=== PATIENT | female | born 1940 | race Caucasian/White ===

== ENCOUNTER → 2017-06-05 | Outpatient (CLI) | payer MEDICARE, OTHER ==
[~2017-06-05] MED LIST: ANUSOL-HC30 GM TOP; ASPIRIN81 M2 PO; CETACAINE; COUMADIN 5 MG TA5 M1 PO; COUMADIN7.5 MG PO; DESYREL150 MG PO; ENOXAPARIN100 MG/1 M SUBQ; FLEXERIL; FLEXERIL PO; IBUPROFEN 800800 M1 PO; LOPRESSOR50 PO; MEDROLDOSEPACK PO; MELATONIN3 MG PO; MIRALAX PO; MOM PO; NEURONTIN 400400 M1 PO; NORVASC 5 MG TAB5 MG PO; NYSTATIN 1100000 U/M; OMEPRAZOLE20 M2 PO; PERCOCET 5-3251 EACH; PERCOCET 5-3251 EACH PO; PHENERGAN 25 MG25 M1 PO; PREDNISONE PO; PREVACID15 MG PO; RED YEAST RICE600 MG PO; REQUIP0.5 MG PO; SENNA; SYNTHROID PO; SYNTHROID100 MC1 PO; TAMSULOSIN HCL0.4 M1 PER TUBE; TRAMADOL 50 MG50 MG PO; TYLENOL PM EX-1 EACH PO; VITAMIN B COMPLEX PO; XARELTO15 MG PO; [UNRECOGNIZED DRUG - CODE] PO; [UNRECOGNIZED DRUG - OTHER] SUBQ
--- NOTE | 2017-06-11 08:48 | PAINCON ---
[address] [address] PAIN MANAGEMENT CONSULTATION Name: JANKI ROD Room: [facility] CherAyannaChrisAyanna#: [id number] Admission: 06/05/17 Attend Phys: Claire Yoder MD Discharge: Date of : 39 Report #: [id number] THIS REPORT FOR: //name// CC: Leona Friend DATE OF SERVICE: 06/05/2017 FOLLOWUP COMPLAINT: "Still having some pain in my neck and I am having hot, burning pain down my left arm and my index and middle finger are numb. FOLLOWUP HISTORY: The patient is a 77-year-old female who has been seen in the pain clinic because of pain. She had pain in the occipital area. She underwent an occipital nerve block and noted improvement in that pain. She had been experiencing some shooting pain, which is much less problematic. Now, she is noting pain involving her left arm. She notes that this pain, burning and weakness in her left arm is becoming more problematic. It can last for a number of hours. She denies any new trauma to this area. She has some problems with her left shoulder and thinks that she may have some problem with the shoulder itself. This new pain, which is shooting, burning and has involvement of her index and middle finger is more problematic. She has pain score of 4/10. She continues to have some pain in the lower portion of her back with some radiating down into her leg. She has had sciatica and notes that this pain along the right side can become problematic as well. She finds that the Percocet medication 1-2 tablets 5/325 p.o. q.6-8 hours p.r.n. can be helpful. She denies any new trauma or fall since we saw her last. She continues to take Coumadin because of her history of pulmonary embolus problems. She has not taken her Coumadin over the last couple of days. She does not take her INR at home. She no longer has the device. ALLERGIES: MEPERIDINE, VICODIN. CURRENT MEDICATIONS: Tylenol Extra Strength, Norvasc 5 mg, Flexeril 10 mg, gabapentin 600 mg b.i.d., metoprolol 25 mg b.i.d., omeprazole 20 mg b.i.d., oxycodone 5/325 one to two tablets every 4-6 hours p.r.n., Requip 2 tablets at bedtime, Desyrel 150 mg at bedtime, Coumadin 5 and alternating with 2.5, prednisone 2.5 mg for inflammation, vitamin B complex. PHYSICAL EXAMINATION: HEENT: Head is atraumatic. Eyes are not icteric, no complaint or ear problem. Moist buccal area. No complaints. NECK: Without adenopathy. She does have some soreness [place] [address] PAIN MANAGEMENT CONSULTATION Name: JANKI ROD Room: [facility]#: [id number] Admission: 06/05/17 Attend Phys: Claire Yoder MD Discharge: Date of : 39 Report #: [id number] of the left brachial outflow tract. Complains of pain with radiation down into the left arm with numbness and tingling in the left index and middle finger. Cervical compression with the head tilted to the left exacerbates the pain and cause more pain radiating down into her shoulder and arm. Muscle strength is judged to be 4+ for the left and right upper extremity. Deep tendon reflexes are trace at the biceps tendons bilaterally, trace for ulnar, trace for brachioradialis. Muscle casing flusher is 4/5 bilaterally. HEART: Regular rate, no gallops or rubs. Normal S1, S2. LUNGS: Clear to auscultation. EXTREMITIES: The patient complains of pain radiating down in her right lower buttocks and some in the lower portion of her right leg. The patient has a prosthetic left leg. IMPRESSION: 1. Cervical radiculopathy, status post occipital neuralgia. Continues to have burning pain down in the left C5/C6 nerve areas. 2. Polyarteritis, status post multiple back surgeries, right total knee replacement, prosthetic left leg. 3. History of right shoulder arthroscopy and shoulder replacement with some continued pain in the right. 4. Pain in the knees. History of right foot and multiple foot surgeries, history of intestinal obstruction with colostomy. Not problematic at this juncture, the patient will monitor use of opioids. 5. 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 RECOMMENDATIONS: We discussed treatment options with the patient. A model was used to indicate the area of probable pathology. We reviewed the dermatomal distribution of her pain. It can corresponds to C5-C6 with burning in this dermatomal distribution with numbness and weakness. A period of time was spent reviewing the patient's cervical complaints, shoulder complaints, lumbar complaints and neck complaints. At this juncture, the patient states that she has not taken her Coumadin for a couple of days. She does not have an INR available. We would recommend that she does not take her Coumadin at this juncture. She will follow up in about 4 days, get an INR. If the INR is less than 1.2, we will proceed with a cervical epidural steroid injection. If not, she will follow up in the next couple of days, at which time, hopefully her INR would be of an appropriate level and the cervical epidural steroid injection will be done at that point. We would like to thank you for letting us participate in her care. The patient was seen in the pain clinic and discussed her situation over a 25-minute period of time with greater than 50% of the time allocated to discussing her situation and reasonable treatment plan. <ELECTRONICALLY SIGNED> By: Claire Yoder MD 06/11/17 0848 1152 1704N. Perfecto Yoder MD /[facility]
== END ==
LOC: M.PC 02:18
DX: M54.12 Radiculopathy, cervical region (principal); M30.0 Polyarteritis nodosa; M25.562 Pain in left knee; J81.1 Chronic pulmonary edema; Z98.890 Other specified postprocedural states; Z96.611 Presence of right artificial shoulder joint; Z79.01 Long term (current) use of anticoagulants

== ENCOUNTER → 2017-06-10 | Outpatient (CLI) | payer MEDICARE, OTHER ==
--- NOTE | 2017-06-11 08:48 | PAINCON ---
[address] [address] PAIN MANAGEMENT CONSULTATION Name: MARCELJANKI PERRY Room: [facility].#: [id number] Admission: 06/10/17 Attend Phys: Claire Yoder MD Discharge: Date of : 39 Report #: [id number] THIS REPORT FOR: //name// CC: Leona Friend DATE OF SERVICE: 06/10/2017 FOLLOWUP COMPLAINT: "Pain in my neck with pain down into the left arm, index and middle fingers. FOLLOWUP HISTORY: The patient is a 77-year-old female who has been seen in the pain clinic because of cervical radiculopathy. She has been experiencing pain and discomfort in the left neck area with pain radiating down from her shoulder into her forearm and into her middle and index fingers and thumb finger. They are numb. She has returned today for a cervical epidural steroid injection. She rates her pain as 5/10 at this juncture. She notes that there is some burning in her arm with numbness and tingling sensation in her finger with some spasms. She would like to proceed with a cervical epidural steroid injection at this juncture. ALLERGIES: DEMEROL. CURRENT MEDICATIONS: Coumadin, which has been stopped for 5 days, extra strength Tylenol, Norvasc 5 mg, Flexeril 10 mg q. 6 hours p.r.n., gabapentin 600 mg twice a day, Lopressor 25 mg b.i.d., omeprazole 20 mg b.i.d., Percocet 1-2 tablets q. 4 hours p.r.n. pain 5/325 mg tablets, Requip 0.5 mg 2 tablets at bedtime, trazodone 150 mg at bedtime, Coumadin 5/2.5 mg, the patient has not taken this for the last 5 days, prednisone for inflammation 2.5 mg daily. PHYSICAL EXAMINATION: HEENT: Head atraumatic. Eyes nonicteric. No complaints of ear or nose. Buccal area moist. NECK: Without adenopathy. NEUROLOGIC: Has some soreness to palpation in the left brachial outflow tract. Has pain and numbness down in the left forearm with numbness in the index and middle fingers. Muscle strength is judged to be 4+ in the left arm and 5+ in the right upper extremity. Deep tendon reflexes are trace at the biceps tendons bilaterally, trace for ulnar. Numbness and tingling right index and middle fingers. Muscle structural steel equipment erector 4/5 bilaterally. HEART: Regular rate. Normal S1. No rubs. LUNGS: Clear to auscultation. EXTREMITIES: The patient ambulates with use of a cane. [place] [address] PAIN MANAGEMENT CONSULTATION Name: JANKI RODN Room: [facility]#: [id number] Admission: 06/10/17 Attend Phys: Claire Yoder MD Discharge: Date of : 39 Report #: [id number] IMPRESSION: 1. Cervical radiculopathy with numbness and tingling in the left index and middle fingers. 2. Polyarteritis status post multiple back surgeries, right total knee replacement, prosthetic left leg. 3. History of right shoulder arthroscopy and shoulder replacement with some pain continuing on the right. 4. Pain in the knees. History of right foot and multiple foot surgeries. 5. History of intestinal obstruction and colostomy, not problematic at this juncture. 6. Chronic anticoagulation, status post deep venous thrombosis and bilateral pulmonary edema. The patient is refrained from using her Coumadin with thoughts of undergoing a cervical epidural steroid injection today. RECOMMENDATIONS: We will proceed with a cervical epidural steroid injection. Risks and benefits of the procedure were again reviewed. Possible complications were discussed. The possibility of infection, increased muscle soreness, bleeding, nerve damage, cervical radicular pain exacerbation, and spinal headache were discussed. The patient elects to proceed. PROCEDURE NOTE: The patient was placed in the prone position. Fluoroscopy was used to identify the C7-T1 interspace. This area had been sterilely prepped with Betadine. Then, 0.25% bupivacaine was infiltrated into this area. A fluoroscopy machine using anterior and lateral approaches was utilized. After appropriate alignment, a 17-gauge Tuohy with loss of resistance technique was used to gain access to the C7-T1 interspace. This area had been infiltrated with 2.2% bupivacaine. A total of 120 mg triamcinolone was injected after aspiration was negative. A Band-Aid was then placed in the area of the injection. The patient remained in the pain clinic for an appropriate amount of time. She was taken to the recovery room where she rested without complication. Pain score was rated at 4/10 at the time of discharge. She will follow up in the future as needed. We would like to thank you for letting us participate in her care. We hope she continues to improve. <ELECTRONICALLY SIGNED> By: Claire Yoder MD 06/11/17 0848 1253 2331N. Perfecto Yoder MD /[facility]
== END | disposition home or self-care (01) ==
LOC: M.PC 01:50
DX: M54.12 Radiculopathy, cervical region (principal); M30.0 Polyarteritis nodosa; Z98.890 Other specified postprocedural states; Z93.3 Colostomy status; Z79.01 Long term (current) use of anticoagulants; Z88.8 Allergy status to other drugs, medicaments and biological substances; Z79.899 Other long term (current) drug therapy

== ENCOUNTER → 2017-07-08 | Outpatient (CLI) | payer MEDICARE, OTHER ==
--- NOTE | 2017-07-09 10:11 | PAINCON ---
[address] [address] PAIN MANAGEMENT CONSULTATION Name: JANKI ROD Room: [facility].#: [id number] Admission: 07/08/17 Attend Phys: Claire Yoder MD Discharge: Date of : 39 Report #: [id number] THIS REPORT FOR: //name// CC: Leona Friend DATE OF SERVICE: 07/08/2017 FOLLOWUP COMPLAINT: The pain was pretty good until a few days ago and it has gotten worse. FOLLOWUP HISTORY: The patient is a 77-year-old female who has been seen in the pain clinic because of cervical radiculopathy. She has had pain in the left arm with pain radiating down to the middle and index finger. She underwent a cervical epidural steroid injection at the last visit. She noted significant improvement of 100%. She has noted some increased pain and discomfort in her back as well as in her shoulder area. She has noted that the weather change which has become consistently cold at around windshields of 0 degrees that her pain has worsened. She is also concerned that her sister has shingles in her face, ear and eye in [place]. She is considering going down to see her and lend assistance. She is considering seeing her orthopaedic surgeon. She does have some pain and discomfort in her shoulder. She feels that it continues to tear in the left shoulder. She is experiencing also some pain in her lower back down into her right leg. She feels that her balance may be getting a little worse. She continues to have some numbness and spasms in her hands bilaterally. She finds that Percocet can be somewhat helpful. At this juncture, she has returned to the pain clinic for evaluation and for a cervical epidural steroid injection and possible epidural steroid injection for the lower extremities in the future. ALLERGIES: DEMEROL. CURRENT MEDICATIONS: Include: Coumadin, which she stopped and has an INR today of 1.0, Extra Strength Tylenol, Norvasc 5 mg, Flexeril 10 mg q. 6 hours p.r.n., gabapentin 600 mg b.i.d., Lopressor 25 mg b.i.d., omeprazole 20 mg b.i.d., Percocet 1-2 tablets q.4 hours p.r.n. pain 5/325 Percocet tablets, Requip 0.5 mg 2 tablets at bedtime, trazodone 150 mg at bedtime, Coumadin 5/2.5 mg, the patient has not taken this medication and has had her INR checked. Prednisone for inflammation 2.5 mg daily. PHYSICAL EXAMINATION: HEENT: The patient is normocephalic, atraumatic. Extraocular eye muscles intact. Sclerae nonicteric. Hearing appears normal. No nasal complaints. Buccal area moist. NECK: Without adenopathy. The patient does have some discomfort in the left area which improves when she tilts her head to the left. She notes some [facility] [address] [place] [address] PAIN MANAGEMENT CONSULTATION Name: MARCELJANKI PERRY [id number] Admission: 07/08/17 Attend Phys: Claire Yoder MD Discharge: Date of : 39 Report #: [id number] improvement in the discomfort. NEUROLOGIC: The patient has some soreness to palpation in the left brachial outflow tract. Has some soreness in the left trapezius area and right trapezius area of her neck. Notes pain and discomfort with numbness down into the left forearm involving her middle fingers and index finger. Muscle strength continues to be judged 4+ in the left arm and 5 in the upper extremity on the right. Deep tendon reflexes are trace bilaterally at the biceps and trace at the ulnar. Muscle leasing professional strength is 4/5 bilaterally. HEART: Regular rate, normal S1. No rubs. LUNGS: Clear to auscultation. EXTREMITIES: The patient is able to ambulate with a cane. As you recall, she has a prosthetic left leg. Complains of some pain and discomfort radiating down into the right L5/L4 distribution. IMPRESSION: 1. Cervical radiculopathy with numbness and tingling involving the left index finger, which improved by 100% after last epidural steroid injection. 2. Polyarteritis, status post multiple back surgeries, right total knee replacement and prosthetic left leg. 3. History of right shoulder arthroscopy and shoulder replacement with some pain continuing on the right. The patient has pain and discomfort on the left and is considering seeing her orthopedic surgeon in that regard. 4. Pain in the knees. History of right foot and multiple foot surgeries. 5. History of intestinal obstruction and colonostomy not problematic at this juncture. 6. Chronic anticoagulation. The patient has history of deep venous thrombosis and bilateral pulmonary edema. She has stopped her Coumadin and her INR today is 1. RECOMMENDATIONS: We discussed treatment options with the patient. At this juncture, we will proceed with a cervical epidural steroid injection. Risks and benefits of the procedure were again reviewed. Possible complications were discussed. They include, but are not limited to infection, increased muscle soreness, headache, bleeding, nerve damage and the patient elects to proceed. PROCEDURE NOTE: The patient was placed in the prone position. The fluoroscopy was used to identify the C8-T1 interspace. This area had been sterilely prepped with Betadine. 0.25% bupivacaine was infiltrated into the area. A fluoro machine was then used providing anterior, posterior and lateral visualization. After appropriate alignment, a 17-gauge Tuohy with loss of resistance technique was used to gain access to the epidural space. This was at C7-T1. This area had been infiltrated with 0.25% bupivacaine. Total of 120 mg triamcinolone was injected after negative aspiration. A Band-Aid was placed in the area of the injection. There was no bleeding. The patient was then taken to the recovery room where she remained for an appropriate amount of time. She will follow up in the future as needed. The possibility of [place] [address] PAIN MANAGEMENT CONSULTATION Name: MARCELJANKI Room: [facility]#: [id number] Admission: 07/08/17 Attend Phys: Claire Yoder MD Discharge: Date of : 39 Report #: [id number] the lower back area has been discussed. We would like to thank you for letting us participate in her care. A total of 26 seconds fluoroscopy time was used. <ELECTRONICALLY SIGNED> By: Claire Yoder MD 07/09/17 1011 1402 1604N. Perfecto Yoder MD /[facility]
== END | disposition home or self-care (01) ==
LOC: M.PC 06-24 09:50
DX: M54.12 Radiculopathy, cervical region (principal); M30.0 Polyarteritis nodosa; M25.561 Pain in right knee; M25.562 Pain in left knee; M25.512 Pain in left shoulder; Z96.611 Presence of right artificial shoulder joint; Z96.651 Presence of right artificial knee joint; Z87.19 Personal history of other diseases of the digestive system; Z98.0 Intestinal bypass and anastomosis status; Z79.01 Long term (current) use of anticoagulants; Z86.718 Personal history of other venous thrombosis and embolism; Z88.8 Allergy status to other drugs, medicaments and biological substances; Z79.899 Other long term (current) drug therapy; Z79.891 Long term (current) use of opiate analgesic

== ENCOUNTER → 2017-08-19 | Outpatient (CLI) | payer MEDICARE, OTHER ==
--- NOTE | 2017-08-29 08:28 | PAINCON ---
[address] [address] PAIN MANAGEMENT CONSULTATION Name: JANKI ROD Room: [facility] Marco Antonio#: [id number] Admission: 08/19/17 Attend Phys: Claire Yoder MD Discharge: Date of : 39 Report #: [id number] THIS REPORT FOR: //name// CC: Leona Friend DATE OF SERVICE: 08/19/2017 FOLLOWUP COMPLAINT: Here for another injection. The other one gave me about 90% relief. FOLLOWUP HISTORY: The patient is a 77-year-old female who has been seen in the Pain Clinic because of cervical radiculopathy. She continues to have pain and discomfort down into her left arm with some radiating down into the middle and index finger. She has undergone epidural steroid injections. She has noted significant improvement. She noted above 90% improvement after the last injection. At this juncture, she has noted some return of discomfort and rates it as a 3/10. She has pain in her neck radiating down the left shoulder with pain down into her fingers. As you recall, she has a left shoulder problem. There is a possibility of having laparoscopic surgery in the future. She wanted to get the cervical portion of her pain under control prior to left shoulder surgery by her orthopaedic doctor. She does find that 1-2 Percocet 5/325 have been helpful. She has had no complication from the previous injections nor from her medications that she is using at this point. ALLERGIES: DEMEROL. CURRENT MEDICATIONS: Reviewed and include Coumadin, which she has stopped. It is in a reasonable range of normal. Extra strength Tylenol, Norvasc 5 mg, Flexeril 10 mg q.6 hours p.r.n., gabapentin 600 mg b.i.d., Lopressor 25 mg b.i.d., omeprazole 20 mg b.i.d., Percocet 1 to 2 tablets every 4-6 hours p.r.n. pain - 5/325 mg tablets, Requip 0.5 mg 2 tablets at bedtime, trazodone 150 mg at bedtime, Coumadin 5/2.5 as prescribed. The patient has not taken her medication for greater than 5 days, prednisone for inflammation 2.5 mg daily. PAIN CLINIC ASSESSMENT: 1. 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 2. The patient has had a right shoulder replacement. 3. Height 5 feet 4 inches, weight 225 pounds, BMI is 38.4. 4. Vital signs: Blood pressure 164/97, heart rate 118, room air saturation is 96, respiratory rate is 16, temperature 98.2, pain intensity 3/10 5. Fall risk. The patient has not fallen in the last 3 months. As you recall, she has a prosthetic left leg. Does walk with use of a cane. 6. The patient is on Coumadin, has stopped it to take for this procedure. We will resume it [place] [address] PAIN MANAGEMENT CONSULTATION Name: JANKI ROD Room: [facility]#: [id number] Admission: 08/19/17 Attend Phys: Claire Yoder MD Discharge: Date of : 39 Report #: [id number] 7. History of hypertension. The patient is being treated for hypertension. 8. Opioids greater than 6 weeks. The patient is not on an opioid contract and is not taking medication on a regular basis. 9. Risk assessment tool. 10. Functional assessment tool. 11. Recreational drug use. The patient denies recreational drugs. 12. Tobacco use. The patient denies use of tobacco. 13. Alcoholic use. The patient denies any frequent use of alcoholic beverages. PHYSICAL EXAMINATION: GENERAL: The patient is a well-developed, white female. She appears her stated age. Affect is appropriate. She is alert and oriented x 3. Speech is fluent. HEENT: Normocephalic, atraumatic. Extraocular eye muscles intact. Sclerae nonicteric. Hearing is within normal limits. No nasal complaints. Moist buccal membranes. NECK: Without adenopathy. The patient does have some discomfort in the left area of her neck with pain radiating into the left shoulder down into her arm with numbness and tingling into her fingers involving the middle and index finger. Notes some weakness in this area. Has some soreness in the left trapezius area as well as in the right outflow tract on the right side. Muscle strength is judged to be 4/5 in the left arm and 5/5 in the upper extremities on the right. Deep tendon reflexes are trace bilaterally at the biceps and trace in the ulnar area. Muscle grades 1 thru 6 visiting teacher strength is 4/5 bilaterally. HEART: Regular rate with normal S1. No rubs. LUNGS: Clear to auscultation. EXTREMITIES: The patient ambulates with use of a cane. As you recall, she has a prosthetic left lower extremity. She has some pain radiating down the L4-L5 distribution. IMPRESSION: 1. Cervical radiculopathy with numbness and tingling involving the left index finger, which improved greater than 100% said in the past after a cervical epidural steroid injection. 2. Polyarteritis, status post multiple back surgeries, right total knee replacement and prosthetic left leg. 3. History of right shoulder arthroscopy and shoulder replacement with some pain continued on the right. The patient has pain and discomfort on the left, which is problematic in which she continues to be followed by her orthopedic surgeon with consideration of surgery in the future. 4. Pain in the knees. History of right foot and multiple foot surgeries. 5. History of intestinal obstruction and colonostomy, not problematic at this juncture. 6. Chronic anticoagulation. The patient has a history of deep venous thrombosis and bilateral pulmonary edema. Stopped her Coumadin for the procedure [place] [address] PAIN MANAGEMENT CONSULTATION Name: JANKI ROD [id number] Admission: 08/19/17 Attend Phys: Claire Yoder MD Discharge: Date of : 39 Report #: [id number] RECOMMENDATIONS: Again, we discussed the treatment option with the patient. The patient feels that her cervical radicular pain continues to be problematic. It involves the left arm with numbness and tingling down in her fingers. She has gleaned greater than 90-100% of improvement in her neck and hand after epidural steroid injections. She would like to proceed with an injection today. Risks and benefits of the procedure were again reviewed. Possible complications, which are not limited to infection, increased muscle soreness, headache, bleeding, nerve damage, improvement in pain or exacerbation of pain were discussed. The patient elects to proceed. PROCEDURE NOTE: The patient was placed in the prone position. The fluoroscopy was used to identify the C7/T1 interspace. This area had been sterilely prepped with Betadine and infiltrated with 0.25% bupivacaine. A fluoro machine was then used to provide anterior, posterior and lateral visualization. After appropriate alignment, a 17-gauge Tuohy with loss of resistance technique was used to gain access to the epidural space. There was no CSF, heme or paresthesia. Total of 120 mg triamcinolone was injected. There were no complications. A Band-Aid was then placed at the site of injection. There was no bleeding. The patient was taken to the recovery room where she remained for an appropriate amount of time. She will follow up in the future as needed. We would like to thank you for letting us participate in her care. We hope she continues to improve. <ELECTRONICALLY SIGNED> By: Claire Yoder MD 08/29/17 0828 2110 0336N. Perfecto Yoder MD /[facility]
== END | disposition home or self-care (01) ==
LOC: M.PC 08-14 09:20
DX: M54.12 Radiculopathy, cervical region (principal); G89.29 Other chronic pain; I10 Essential (primary) hypertension; M19.012 Primary osteoarthritis, left shoulder; M30.0 Polyarteritis nodosa; M19.011 Primary osteoarthritis, right shoulder; Z96.611 Presence of right artificial shoulder joint; Z88.8 Allergy status to other drugs, medicaments and biological substances; Z79.01 Long term (current) use of anticoagulants; Z98.890 Other specified postprocedural states; Z98.0 Intestinal bypass and anastomosis status; Z79.891 Long term (current) use of opiate analgesic; Z79.899 Other long term (current) drug therapy

== ENCOUNTER → 2017-09-10 | Outpatient (CLI) | payer MEDICARE, OTHER | LOC: M.WC 13:00 | DX: L97.811 Non-pressure chronic ulcer of other part of right lower leg limited to breakdown of skin (principal); I87.2 Venous insufficiency (chronic) (peripheral); M21.41 Flat foot [pes planus] (acquired), right foot; G60.3 Idiopathic progressive neuropathy; Z86.73 Personal history of transient ischemic attack (TIA), and cerebral infarction without residual deficits; Z90.710 Acquired absence of both cervix and uterus ==

== ENCOUNTER → 2017-09-11 | Outpatient (CLI) | payer MEDICARE, OTHER ==
--- NOTE | 2017-10-01 08:18 | PAINCON ---
[address] [address] PAIN MANAGEMENT CONSULTATION Name: JANKI ROD [facility] [id number] Admission: 09/11/17 Attend Phys: Claire Yoder MD Discharge: Date of : 39 Report #: [id number] THIS REPORT FOR: //name// CC: Leona Friend DATE OF SERVICE: 09/11/2017 FOLLOWUP COMPLAINT: Low back pain with trigger point. FOLLOWUP HISTORY: The patient is a 77-year-old female, who has been followed in the pain clinic because of pain. She suffers from cervical radiculopathy. She has undergone cervical epidural steroid injections. She has noted some improvement in the pain, which has been radiating down into her arm, has less discomfort. Notes some improvement. She gleaned about 90% improvement after the last injection. At this juncture, she is having pain, which is down into the back area. It is the lower portion of her back. She has had some low back pain for years. As you recall, she has a prosthetic left leg. She is having some numbness and tingling down in the back of her leg with some radiating down to the back of the left leg as well. Overall, she feels that the cervical epidural steroid injections have been helpful. She would now like to focus on the lower back. She has noted some problems with her right leg. She indicates that there has been some discharge from her right leg. It has been to the level that it has caused her to change her bed sheets. She continues to have some drainage. States that it does not appear to be infected, but there is still some drainage going on. Her daughter is present and concurs with her history. ALLERGIES: DEMEROL. CURRENT MEDICATIONS: Coumadin. Extra strength Tylenol, Norvasc 5 mg, Flexeril 10 mg every 6 hours p.r.n., gabapentin 600 mg b.i.d., Lopressor 25 mg b.i.d., omeprazole 20 mg b.i.d., Percocet one-two tablets every 4-6 hours p.r.n. pain 5/325 is the strength, Requip 0.5 mg 2 tablets at bedtime, trazodone 150 mg at bedtime, Coumadin 5 mg/2.5 mg as prescribed, the patient has used prednisone for inflammation 2.5 mg daily. PAIN ASSESSMENT: 1. 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 2. The patient has had a right shoulder replacement. 3. Height 5 feet 4 inches, weight 230 pounds, BMI is 40. 4. VITAL SIGNS: Blood pressure 117/94, heart rate 91, respiratory rate 18, room air saturation 96%, and temperature 97.8. 5. Fall risk. The patient has not fallen. She does [place] [address] PAIN MANAGEMENT CONSULTATION Name: JANKI ROD Room: [facility]#: [id number] Admission: 09/11/17 Attend Phys: Claire Yoder MD Discharge: Date of : 39 Report #: [id number] and she does walk with use of a cane. 6. The patient is on a blood thinner, Coumadin. She stops this when she undergoes procedures. 7. History of hypertension. The patient is being treated for hypertension. 8. Opioid greater than 6 weeks. The patient is not on her opioid contract and is not taking opioid medication on a regular basis. 9. Risk assessment tool. 10. Functional assessment tool. 11. Recreational drug use. The patient denies recreational drug use. 12. Tobacco use. The patient denies use of tobacco. 13. Alcohol use. The patient denies frequent use of alcoholic beverages. PHYSICAL EXAMINATION: GENERAL: The patient is a well-developed, well-nourished white female. She appears her stated age. Her affect is appropriate. She is alert and oriented x 3. Speech is fluent. HEENT: Normocephalic, atraumatic. Extraocular eye muscles intact. Sclerae is nonicteric. Hearing is within normal limits. Nasal mucosa are moist. NECK: Without adenopathy. The patient does have less pain and discomfort down into her left arm and shoulder. HEART: Regular rate with normal S1. No rubs or gallops. LUNGS: Clear to auscultation without rales or rhonchi. EXTREMITIES: The patient ambulates with use of a cane. As you recall, she has a prosthetic left extremity. She complains of pain, is radiating down the L4-L5 distribution. IMPRESSION: 1. Lumbar radicular pain with pain in the lower portion of her back and some trigger point pain in the low back as well. 2. History of cervical radiculopathy, improved with the cervical epidural steroid injections. 3. 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 4. History of right shoulder arthropathy and shoulder replacement. 5. Pain in the knees. History of right foot and with multiple surgeries. 6. History of intestinal obstruction and colostomy, not problematic at this juncture. 7. Chronic anticoagulation secondary to deep vein thrombosis and bilateral pulmonary edema. RECOMMENDATIONS: We discussed treatment options with the patient. At this juncture, she is still having a drainage from her leg. We have explained to her that though it does not appear to be infected at this juncture, I think we would be well served to wait until this has defined itself. We have explained the properties of steroids. They can suppress once immune system. This might cause what might be a small infected area to significantly [place] [address] PAIN MANAGEMENT CONSULTATION Name: JANKI RODN Room: [facility]#: [id number] Admission: 09/11/17 Attend Phys: Claire Yoder MD Discharge: Date of : 39 Report #: [id number] more problematic possibly systemic. Once she has this drainage under control, she will then return to the pain clinic, at which time we would then consider options. We would like to thank you for letting us participate in her care. We hope she continues to improve. <ELECTRONICALLY SIGNED> By: Claire Yoder MD 10/01/17 0818 [id number] [id number]. Perfecto Yoder MD /nt
== END ==
LOC: M.PC 01:27
DX: M19.012 Primary osteoarthritis, left shoulder (principal); M19.011 Primary osteoarthritis, right shoulder; F11.20 Opioid dependence, uncomplicated; I10 Essential (primary) hypertension; Z91.81 History of falling

== ENCOUNTER → 2017-09-17 | Outpatient (CLI) | payer MEDICARE, OTHER | LOC: M.WC 03:07 | DX: E11.622 Type 2 diabetes mellitus with other skin ulcer (principal); I87.2 Venous insufficiency (chronic) (peripheral); L97.811 Non-pressure chronic ulcer of other part of right lower leg limited to breakdown of skin; L89.893 Pressure ulcer of other site, stage 3; E11.40 Type 2 diabetes mellitus with diabetic neuropathy, unspecified; M21.41 Flat foot [pes planus] (acquired), right foot; G60.3 Idiopathic progressive neuropathy; Z86.73 Personal history of transient ischemic attack (TIA), and cerebral infarction without residual deficits; Z90.710 Acquired absence of both cervix and uterus ==

== ENCOUNTER → 2017-09-24 | Outpatient (CLI) | payer MEDICARE, OTHER | LOC: M.WC 04:30 | DX: L97.811 Non-pressure chronic ulcer of other part of right lower leg limited to breakdown of skin (principal); I87.2 Venous insufficiency (chronic) (peripheral); L89.893 Pressure ulcer of other site, stage 3; M21.41 Flat foot [pes planus] (acquired), right foot; G60.3 Idiopathic progressive neuropathy; Z86.73 Personal history of transient ischemic attack (TIA), and cerebral infarction without residual deficits; Z90.710 Acquired absence of both cervix and uterus ==

== ENCOUNTER → 2017-09-30 | Outpatient (CLI) | payer MEDICARE, OTHER | LOC: M.RAD 11:06 | DX: M54.16 Radiculopathy, lumbar region (principal); M40.294 Other kyphosis, thoracic region; M47.894 Other spondylosis, thoracic region; M48.04 Spinal stenosis, thoracic region ==

== ENCOUNTER → 2017-10-01 | Outpatient (CLI) | payer MEDICARE, OTHER | LOC: M.WC 02:54 | DX: E11.622 Type 2 diabetes mellitus with other skin ulcer (principal); L97.811 Non-pressure chronic ulcer of other part of right lower leg limited to breakdown of skin; L89.893 Pressure ulcer of other site, stage 3; E11.40 Type 2 diabetes mellitus with diabetic neuropathy, unspecified; I87.2 Venous insufficiency (chronic) (peripheral); E66.9 Obesity, unspecified; Z68.35 Body mass index [BMI] 35.0-35.9, adult; Z86.73 Personal history of transient ischemic attack (TIA), and cerebral infarction without residual deficits; Z90.710 Acquired absence of both cervix and uterus ==

== ENCOUNTER → 2017-10-09 | Outpatient (CLI) | payer MEDICARE, OTHER | LOC: M.MRI 12:45 | DX: M47.894 Other spondylosis, thoracic region (principal); M48.04 Spinal stenosis, thoracic region; M51.16 Intervertebral disc disorders with radiculopathy, lumbar region; M48.061 Spinal stenosis, lumbar region without neurogenic claudication; G89.29 Other chronic pain ==

== ENCOUNTER → 2017-10-15 | Outpatient (CLI) | payer MEDICARE, OTHER | LOC: M.WC 10-08 13:00 | DX: E11.622 Type 2 diabetes mellitus with other skin ulcer (principal); L97.812 Non-pressure chronic ulcer of other part of right lower leg with fat layer exposed; L89.893 Pressure ulcer of other site, stage 3; E11.40 Type 2 diabetes mellitus with diabetic neuropathy, unspecified; I87.2 Venous insufficiency (chronic) (peripheral); Z86.73 Personal history of transient ischemic attack (TIA), and cerebral infarction without residual deficits; Z90.710 Acquired absence of both cervix and uterus ==

== ENCOUNTER → 2017-10-22 | Outpatient (CLI) | payer MEDICARE, OTHER | LOC: M.WC 04:05 | DX: L97.811 Non-pressure chronic ulcer of other part of right lower leg limited to breakdown of skin (principal); I87.2 Venous insufficiency (chronic) (peripheral); M21.41 Flat foot [pes planus] (acquired), right foot; G60.3 Idiopathic progressive neuropathy; Z86.73 Personal history of transient ischemic attack (TIA), and cerebral infarction without residual deficits ==

== ENCOUNTER → 2017-10-29 | Outpatient (CLI) | payer MEDICARE, OTHER | LOC: M.WC 04:16 | DX: L97.811 Non-pressure chronic ulcer of other part of right lower leg limited to breakdown of skin (principal); I87.2 Venous insufficiency (chronic) (peripheral); M21.41 Flat foot [pes planus] (acquired), right foot; G60.3 Idiopathic progressive neuropathy; Z86.73 Personal history of transient ischemic attack (TIA), and cerebral infarction without residual deficits; Z90.710 Acquired absence of both cervix and uterus ==

== ENCOUNTER → 2018-01-20 | Outpatient (CLI) | payer MEDICARE, OTHER ==
--- NOTE | 2018-01-28 16:41 | PAINCON ---
[address] [address] PAIN MANAGEMENT CONSULTATION Name: JANKI ROD Room: [facility].#: [id number] Admission: 01/20/18 Attend Phys: Claire Yoder MD Discharge: Date of : 39 Report #: [id number] THIS REPORT FOR: //name// CC: Leona Friend DATE OF SERVICE: 01/20/2018 FOLLOWUP COMPLAINT: "I have been having pain in my back. I am having pain in my neck and my hands are weak. FOLLOWUP HISTORY: The patient is a 77-year-old female who has been seen in the pain clinic on a number of occasions. She states that she has been having more pain and discomfort. She notes some weakness in her legs. She also has weakness in her hands. She states that when she tries to pull the bed covers down, she has had some difficulty with this because of the weakness involving her hands and in her fingers. She did have some problems with an infection as you may recall in her leg. This was the amputated leg. She states that she was in a rehab hospital for about 2-1/2 months. She has had some work on shoulder surgery. She feels that of all of her pain conditions, the one involving her hands are the most distressing. She has lost her fsr strength. ALLERGIES: DEMEROL, HYDROCODONE FROM VICODIN, ACETAMINOPHEN FROM VICODIN. CURRENT MEDICATIONS: Tylenol Extra Strength; amlodipine 5 mg; Flexeril 10 mg as needed; Neurontin 300 mg, 300 a.m., 300 noon, 600 evening; Lopressor 25 mg b.i.d., omeprazole b.i.d.; Percocet 5/325; Requip 0.5 mg 2 tablets at bedtime; trazodone 150 mg at bedtime; prednisone for inflammation 2.5 mg daily; Chlor tabs 4 mg as directed; vitamin B complex. PAIN CLINIC ASSESSMENT: 1. History of osteoarthritis involving her upper left and right shoulder. 2. Height 5 feet 4 inches, weight 225 pounds, BMI is 39. 3. Vital signs: Blood pressure 128/73, heart rate 88, respiratory rate 16, room air saturation 96%, temperature 98.3. 4. Pain intensity 4/5 out of 10. 5. Falls. The patient has not fallen in the last 3 months. 6. Blood thinner. The patient has stopped Coumadin and is not on a blood thinner at this juncture. 7. Hypertension. The patient is not being treated for hypertension. 8. Risk assessment tool. 9. Functional assessment tool. 10. Recreational drug use. The patient denies use of recreational drugs. 11. Tobacco: The patient denies use of tobacco. 12. Alcohol: The patient [place] [address] PAIN MANAGEMENT CONSULTATION Name: JANKI ROD Room: [facility]#: [id number] Admission: 01/20/18 Attend Phys: Claire Yoder MD Discharge: Date of : 39 Report #: [id number] PHYSICAL EXAMINATION: GENERAL: The patient is a well-developed, well-nourished white female, who appears her stated age. She is alert and oriented x 3. Her affect is appropriate. She is alert and oriented x 3. HEENT: Normocephalic, atraumatic. Extraocular muscles intact. Sclerae nonicteric. Hearing is within normal limits. Mucous membranes moist. NECK: Without adenopathy. The patient does have some complaints of weakness down into her hands with weakness in her fsr strength as well as in her muscles. The patient has some weakness in her arms. She recently had shoulder surgery. HEART: Regular rate. S1, S2, without gallops, or rubs. LUNGS: Clear to auscultation without rhonchi. EXTREMITIES: The patient is using a rolling walker. She states that she can only walk about 6 or 8 feet before she notes some discomfort and must slow down. IMPRESSION: 1. History of increased arm and hand weakness - cervical radicular symptoms. 2. Lumbar radicular pain in the lower portion of her back. 3. History of osteoarthritis involving her shoulders. The patient recently had shoulder surgery. 4. Polyarteritis status post multiple back surgeries. Has had right total knee replacement and prosthetic left hip. 5. History of the right foot with multiple surgeries. 6. History of intestinal obstruction and colostomy not problematic at this juncture. 7. Chronic anticoagulation secondary to history of deep venous thrombosis and bilateral pulmonary edema. RECOMMENDATIONS: We discussed treatment options with the patient. She continues to have pain and discomfort in her arms with weakness. She states that she is unable to pull the bed covers down when she is lying in bed. Has weakness in her hand and in her hand fsr. We will proceed with a cervical epidural steroid injection. Risks and benefits of the procedure were discussed. They include but are not limited to infection, increased muscle soreness, headache, bleeding, worsening of pain, no improvement in pain and the patient elects to proceed. PROCEDURE NOTE: The patient was taken to the procedure area. She was assisted in getting on the examination table with gentle care. After appropriate placement, her cervical area was sterilely prepped with a Betadine solution. Fluoroscopy using anterior, posterior and lateral viewing were implemented in doing the procedure. A midline approach was chosen. At C7-T1, a 17-gauge Tuohy with loss of resistance technique was used to gain access to the epidural space. There was no CSF, heme or paresthesia. A total of 120 mg triamcinolone was injected. The patient tolerated the procedure well. [place] [address] PAIN MANAGEMENT CONSULTATION Name: JANKI ROD Room: [facility]#: [id number] Admission: 01/20/18 Attend Phys: Claire Yoder MD Discharge: Date of : 39 Report #: [id number] Clinic for an appropriate amount of time. She will follow up in the future as needed. We would like to thank you for letting us participate in her care. We hope she continues to improve. About 15 seconds fluoroscopy time was used. <ELECTRONICALLY SIGNED> By: Claire Yoder MD 01/28/18 1641 1546 [id number]. Perfecto Yoder MD /nt
== END | disposition home or self-care (01) ==
LOC: M.PC 04:47
DX: M54.12 Radiculopathy, cervical region (principal); Z79.01 Long term (current) use of anticoagulants; Z98.890 Other specified postprocedural states; M54.16 Radiculopathy, lumbar region; I10 Essential (primary) hypertension

== ENCOUNTER → 2018-03-05 | Outpatient (CLI) | payer MEDICARE, OTHER ==
--- NOTE | 2018-04-15 15:49 | PAINCON ---
[address] [address] PAIN MANAGEMENT CONSULTATION Name: MARCELJANKI SHANKSN Room: [facility].#: [id number] Admission: 03/05/18 Attend Phys: Claire Yoder MD Discharge: Date of : 39 Report #: [id number] THIS REPORT FOR: //name// CC: Leona Friend DATE OF SERVICE: 03/05/2018 PRIMARY CARE PHYSICIAN: Leona Rocha D.O. FOLLOWUP COMPLAINT: Pain in the left neck and shoulder. HISTORY OF PRESENT ILLNESS: The patient is a 77-year-old female who has been followed in the pain clinic because of chronic pain. She suffers from cervical radicular pain as well as lumbar radicular pain. She has returned today with complaint of pain in her low back, neck as well as some pain down into her hands. She has undergone a cervical epidural steroid injection at the last visit. She now has pain, which is most problematic in the posterior portion of her neck and left shoulder area. She feels some achy discomfort in her leg. She feels somewhat unsteady. She has been ambulating with use of her walker. As you recall, she has a left BKA. She has been undergoing iron infusions. She received 100% improvement from the cervical epidural steroid injection on 01/20/2018. Rates pain as a 4-5/10 now involving the posterior portion of her left neck and shoulder. ALLERGIES: DEMEROL, HYDROCODONE FROM VICODIN, ACETAMINOPHEN FROM VICODIN. CURRENT MEDICATIONS: Tylenol Extra Strength, amlodipine 5 mg, Flexeril 10 mg p.r.n., Neurontin 300 mg a.m., 300 mg noon, 600 mg evening, Lopressor 25 mg b.i.d., omeprazole 20 mg b.i.d., Percocet 5/325 mg 1 tablet t.i.d., Requip 0.5 mg 2 tablets at bedtime, trazodone 150 mg at bedtime, prednisone 2.5 mg, Chlor-tabs p.r.n. for allergies 4 mg, and vitamin B complex. PAIN CLINIC ASSESSMENT AND PQRS: 1. History of osteoarthritis. The patient has some pain and discomfort in the left and right upper shoulder. The patient is not being treated for rheumatoid arthritis. 2. Height 5 feet 4 inches, weight 230 pounds, BMI 39. 3. Vital Signs: Blood pressure 175/87, heart rate 87, respiratory rate 16, room air saturation 96%, temperature 98.2, and pain intensity 4-5/10. 4. Fall history: The patient has not fallen in the last 3 months. 5. Blood thinner. The patient has stopped her Coumadin. 6. Hypertension. The patient is not being treated for hypertension. 7. Risk assessment tool, low risk. 8. Functional [place] [address] PAIN MANAGEMENT CONSULTATION Name: MARCELJANKI Room: [facility]#: [id number] Admission: 03/05/18 Attend Phys: Claire Yoder MD Discharge: Date of : 39 Report #: [id number] 9. Recreational drug use. The patient denies use of recreational drugs. 10. Tobacco: The patient denies use of tobacco. 11. Alcohol: The patient denies use of alcoholic beverages. PHYSICAL EXAMINATION: GENERAL: The patient is a well-developed, well-nourished, white female, appears her stated age. She is alert and oriented x 3. Her affect is appropriate. Speech is fluent. HEENT: Normocephalic, atraumatic. Extraocular eye muscles intact. Sclerae nonicteric. Hearing is within normal limits. Mucous membranes are moist. NECK: Without adenopathy. The patient has some pain and discomfort in the left occipital area. Palpation in this area causes reproduction of pain and discomfort the patient has been experiencing. Left trapezius area has a trigger point as well. Palpation in this area does reproduce a component of the patient's discomfort. HEART: Regular rate. S1, S2, without gallops or rubs. LUNGS: Clear to auscultation without rhonchi or rales. EXTREMITIES: The patient is using a rolling walker. States that she can walk a short distance and feels somewhat unsteady on her feet. IMPRESSION: 1. Occipital neuralgia, left side and myofascial pain, left shoulder area. 2. History of arm and hand weakness - improved after cervical epidural steroid injection. 3. Lumbar radicular pain, lower extremity and upper back. 4. History of osteoarthritis involving both shoulders, status post shoulder surgery. 5. 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 6. History of right foot with multiple surgeries. 7. History of intestinal obstruction and colostomy, not problematic at this juncture. 8. Chronic anticoagulation secondary to history of deep venous thrombosis and bilateral pulmonary edema. RECOMMENDATIONS: We discussed treatment options with the patient. At this juncture, she has stopped taking her Coumadin. She has returned to the pain clinic with a desire to undergo a trigger point injection to the left shoulder as well as the left occipital area. Notes that this pain is problematic and rates it as a 4-5/10. She continues to try on oxycodone, gabapentin and ibuprofen helpful. The patient has been off her Xarelto for the last 4 days, anticipating an injection. We have discussed the possible complication of the procedure, which could include infection, increased muscle soreness, worsening of the pain, pneumothorax. The patient elects to proceed. PROCEDURE NOTE: The patient was taken to the procedure area. [place] [address] PAIN MANAGEMENT CONSULTATION Name: JANKI RODN Room: [facility]#: [id number] Admission: 03/05/18 Attend Phys: Claire Yoder MD Discharge: Date of : 39 Report #: [id number] the sitting position. The patient leaned forward and resting her head upon the examination table. Her left shoulder area and occipital area were treated with a chlorhexidine solution. The occipital area was identified. A 25-gauge needle was then advanced in the area of the occipital nerve. Aspiration did not reveal heme. A total of 10 mL of 0.5% bupivacaine and 40 mg triamcinolone was injected. The patient also had left shoulder trigger point identified in the trapezius. A 25-gauge needle was then advanced into the left trapezius area. Trigger point was noted. Aspiration did not reveal heme or air. A total of 10 mL of 0.5% bupivacaine and 40 mg triamcinolone was injected. The patient tolerated the procedure well. There were no complications. She remained in the pain clinic for an appropriate amount of time. She will follow up in the future as needed. She will call us if she has any concerns. We would like to thank you for letting us participate in her care. We hope she continues to improve. <ELECTRONICALLY SIGNED> By: Claire Yoder MD 04/15/18 1549 2019 [id number]. Perfecto Yoder MD /[facility] [place]
== END | disposition home or self-care (01) ==
LOC: M.PC 02-19 10:20
DX: M79.18 Myalgia, other site (principal); M54.81 Occipital neuralgia; M19.012 Primary osteoarthritis, left shoulder; M19.011 Primary osteoarthritis, right shoulder; G89.29 Other chronic pain; I10 Essential (primary) hypertension; Z98.890 Other specified postprocedural states; Z96.651 Presence of right artificial knee joint; Z96.643 Presence of artificial hip joint, bilateral; Z93.3 Colostomy status; Z88.8 Allergy status to other drugs, medicaments and biological substances; Z79.899 Other long term (current) drug therapy

== ENCOUNTER → 2018-04-14 | Outpatient (CLI) | payer MEDICARE, OTHER ==
--- NOTE | 2018-04-15 15:35 | PAINCON ---
[address] [address] PAIN MANAGEMENT CONSULTATION Name: JANKI ROD Room: [facility].#: [id number] Admission: 04/14/18 Attend Phys: Claire Yoder MD Discharge: Date of : 39 Report #: [id number] THIS REPORT FOR: //name// CC: Leona Yoder DATE OF SERVICE: 04/14/2018 CHIEF COMPLAINT: "Pain in the left neck, shoulder, and it improved after the last injection". HISTORY: The patient is a 78-year-old female who has been followed in the pain clinic. As you recall, she has some chronic pain. She has some lumbar radicular problems. She has undergone epidural steroid injection in this area. At this juncture, she is having pain and discomfort, continues to be problematic involving the left side. Has some limited movement in her left shoulder. He is only able to raise it horizontal to the floor. Feels that there is some increased pain. She is unable to raise it over her head. She denies any trauma, but she did note after a certain movement while back that it became more problematic to raise it over her above horizontal with it lateral to her body. Notes that there is some pain in the occipital area on the back side of her neck. Palpation in this area is where a component of the pain is located. Also, has some pain in the left scapular area near the trapezius. She does have a prosthetic left leg. She has undergone a BKA. States that when she walks uses her arms for support. Notes that without use of her walker, she is unable to walk unassisted. Does have a history of spinal stenosis. Notes that when she stands for a prolonged period of time, pain becomes quite problematic. 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 States that she walks down the countertop using her hands for movement. She needs something to hold on to steady her. At this juncture, she would like to proceed with an injection to the left shoulder and occipital area. Feels that this is problematic. Did undergo an injection at the last visit and noted greater than 50% improvement. ALLERGIES: DEMEROL, HYDROCODONE FROM VICODIN, ACETAMINOPHEN FROM VICODIN. CURRENT MEDICATIONS: Tylenol Extra Strength, amlodipine 5 mg, Flexeril 10 mg p.r.n., Neurontin 300 mg a.m. and 300 mg at noon and 600 mg in the evening, Lopressor 25 mg b.i.d., omeprazole 20 mg b.i.d., Percocet 5/325 one p.o. t.i.d., Requip 0.5 mg 2 tablets at bedtime, trazodone 150 mg at bedtime, prednisone 2.5 mg, Chlor-tab p.r.n. for allergies 4 mg, vitamin B complex. PAIN CLINIC ASSESSMENT/PQRS: 1. History of osteoarthritic changes. 2. The patient has some pain and discomfort in her left and right upper shoulder. She has had shoulder surgery. The patient is not being [place] [address] PAIN MANAGEMENT CONSULTATION Name: JANKI RODN Room: [facility]#: [id number] Admission: 04/14/18 Attend Phys: Claire Yoder MD Discharge: Date of : 39 Report #: [id number] 3. Height 5 feet 4 inches, weight 218 pounds, BMI is 39. 4. Vital signs: Blood pressure 146/66, heart rate 95, respiratory rate 18, room air saturation 97.7%. 5. Pain score 5/10. 6. Fall history: The patient has not fallen in the last 3 months. 7. Blood thinner. The patient is not on a blood thinning medication. 8. She has stopped her Coumadin with the intension of undergoing a trigger point injection. 9. Hypertension. The patient is not being treated for hypertension. 10. Risk assessment tool, low risk for opioids. 11. Functional assessment tool. 12. Recreational drug use. The patient denies use of recreational drugs. 13. Tobacco: The patient denies use of tobacco. 14. Alcohol: The patient denies use of alcoholic beverages. PHYSICAL EXAMINATION: GENERAL: The patient is a well-developed, well-nourished white female. Appears her stated age. She is alert and oriented x 3. Her affect is appropriate. Speech is fluent. HEENT: Normocephalic, atraumatic. Extraocular eye muscles intact. Sclerae nonicteric. Mucous membranes are moist. NECK: Without adenopathy. The patient has some pain and discomfort in her left occipital area. The patient also has pain and discomfort in the area of the left scapula near the levator scapulae. Palpation in this area does reproduce a component of her pain and discomfort. HEART: Regular rate. S1, S2. ABDOMEN: Nontender. Bowel sounds present. LUNGS: Without rhonchi or rales. Upper extremity muscle strength is judged to be 4+ for the left as well as the right upper extremity. The patient has limitations of extending her left arm to horizontal. IMPRESSION: 1. Occipital neuralgia and myofascial pain involving the left shoulder. History of arm weakness. The patient has had cervical epidural steroid injection in the past which have been helpful. 2. Lumbar radicular pain, lower extremity and upper back. 3. History of osteoarthritis involving both shoulders, status post shoulder surgery. 4. Polyarteritis, status post multiple back surgeries. 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 5. History of right foot with multiple surgeries. 6. History of intestinal obstruction and colostomy not problematic at this juncture. 7. Chronic anticoagulation secondary to history of deep venous thrombosis [place] [address] PAIN MANAGEMENT CONSULTATION Name: MARCELJANKI PERRY Room: [facility]#: [id number] Admission: 04/14/18 Attend Phys: Claire Yoder MD Discharge: Date of : 39 Report #: [id number] RECOMMENDATIONS: We discussed treatment options with the patient. Risks and benefits of trigger point injections were discussed. Possible complications of the procedure, which could include infection, worsening of pain, no improvement in pain and pneumothorax were discussed. The patient elects to proceed. PROCEDURE NOTE: The patient was placed in the sitting position. Her neck on the left occipital area was sterilely prepped with a chlorhexidine solution and allowed to dry. The area of the scapula with the insertion of the levator scapula was palpated. The patient states that this reproduce a considerable component of her pain. A 25-gauge needle was then advanced into the occipital area. A 40 mg Depo-Medrol was injected. The patient tolerated this injection well. The second trigger point at the left levator scapular insertion was performed. There was no aspiration of air. A total of 8 mL of 0.5% bupivacaine and 40 mg of Depo-Medrol was injected. The patient tolerated the procedure well. There were no complications. She remained in the Pain Clinic for an appropriate amount of time. She will follow up in the future as needed. We would like to thank you for letting us participate in her care. We hope she continues to improve. <ELECTRONICALLY SIGNED> By: Claire Yoder MD 04/15/18 1535 1708 [id number]. Perfecto Yoder MD /nt
== END | disposition home or self-care (01) ==
LOC: M.PC 04-07 08:18
DX: M79.18 Myalgia, other site (principal); G89.29 Other chronic pain; M54.81 Occipital neuralgia; M54.16 Radiculopathy, lumbar region; M19.011 Primary osteoarthritis, right shoulder; M19.012 Primary osteoarthritis, left shoulder; Z98.890 Other specified postprocedural states; Z96.651 Presence of right artificial knee joint; Z96.642 Presence of left artificial hip joint; Z98.0 Intestinal bypass and anastomosis status; Z87.19 Personal history of other diseases of the digestive system; Z79.01 Long term (current) use of anticoagulants; Z86.718 Personal history of other venous thrombosis and embolism; Z88.8 Allergy status to other drugs, medicaments and biological substances; Z79.899 Other long term (current) drug therapy

== ENCOUNTER → 2018-07-16 | Outpatient (CLI) | payer MEDICARE, OTHER ==
--- NOTE | 2018-07-21 09:15 | PAINCON ---
[address] [address] PAIN MANAGEMENT CONSULTATION Name: JANKI ROD Room: [facility] ANGELO KatrinaAyanna#: [id number] Admission: 07/16/18 Attend Phys: Claire Yoder MD Discharge: Date of : 39 Report #: [id number] THIS REPORT FOR: //name// CC: Leona Yoder DATE OF SERVICE: 07/16/2018 CHIEF COMPLAINT: "Pain in the left back of my head and some down in the shoulder area. HISTORY: The patient is a 78-year-old female who has been followed in the pain clinic. As you may recall, she has a number of painful areas. Has pain in the left occipital area. She has undergone injections in this area and gleaned significant benefits from these. Also, has pain and discomfort in the neck area with some pain that radiates down into her hands. She is on a blood thinning medication, Xarelto. She has been off of the medication for about 2-1/2 days. She would like to have her medications of Percocet renewed. She would also like to undergo an injection in the left occipital area. Injection in this area has been helpful in the past. Also, has some chronic pain in the right leg. As you may recall, she has already had a [id number] amputation on the left side. He has been having some left arm pain. Has some difficulty raising her left arm over her head. Denies any new trauma. Has not fallen since we saw her last. She is having more problems walking. She is no longer able to walk without the assistance of her rolling walker, has a history of significant spinal stenosis. Prolonged standing exacerbates this problem. Epidural steroid injections in the past have been helpful in decreasing her pain by greater than 50%. ALLERGIES: DEMEROL, HYDROCODONE, VICODIN, TYLENOL. CURRENT MEDICATIONS: Tylenol Extra Strength, amlodipine 5 mg, Flexeril 10 mg p.r.n., Neurontin 300 mg a.m. and 300 mg at noon and 600 mg in the evening, Lopressor 25 mg b.i.d., omeprazole 20 mg b.i.d., Percocet 5/325 one p.o. t.i.d., Requip 0.5 mg 2 tablets at bedtime, trazodone 150 mg at bedtime, prednisone 2.5 mg, Chloro-Tap p.r.n. for allergies, 4 mg, Vitamin B complex. PAIN CLINIC ASSESSMENT/PQRS: 1. History of osteoarthritic changes in the low back area with spinal stenosis. 2. History of occipital neuralgia, improved with injections in the past. 3. The patient is not being treated for rheumatoid arthritis. 4. Height 5 feet 4, weight 227 pounds, BMI is 39. 5. Vital signs: Blood pressure 124/37, heart rate 84, respiratory rate 16, room air saturation 94%, temperature 97.8. 6. Pain intensity 7-8/10. 7. Fall history: The patient has not fallen in the last 3 months. 8. Blood thinner. The patient is on a blood thinner, [place] [address] PAIN MANAGEMENT CONSULTATION Name: MARCELJANKI PERRY [id number] Admission: 07/16/18 Attend Phys: Claire Yoder MD Discharge: Date of : 39 Report #: [id number] 9. Hypertension. The patient has not been treated for hypertension. 10. Risk assessment tool, low for opioid use. 11. Functional assessment tool. 12. Recreational drug use. The patient denies use of recreational drugs. 13. Tobacco: The patient denies use of tobacco. 14. Alcoholic use. The patient denies use of alcoholic beverages. PHYSICAL EXAMINATION: GENERAL: The patient is well-developed, well-nourished white female. Appears her stated age. She is alert and oriented x 3. Her affect is appropriate. Speech is fluent. HEENT: Normocephalic, atraumatic. Extraocular eye muscles intact. Sclerae nonicteric. The patient has pain and discomfort in the left occipital area. Palpation in this area does reproduce a component of her pain. She has some pain that radiates down into the left scapular area in the left shoulder as well. HEART: Regular rate. S1, S2. ABDOMEN: Nontender. Bowel sounds present. LUNGS: Clear to auscultation without rhonchi or rales. The patient has a prosthetic left lower extremity, has some pain in the right leg. IMPRESSION: 1. Occipital neuralgia and myofascial pain involving the left shoulder. 2. History of cervical radiculopathy has undergone epidural steroid injection in the past with benefit. 3. Lumbar radicular pain, lower extremity and upper back. 4. History of osteoarthritis involving both shoulders, status post shoulder surgery. 5. Polyarteritis, status post multiple back surgeries. 6. The patient's right total knee replacement and prosthetic left hip. 7. History of right foot with multiple surgeries. 8. History of intestinal obstruction and colostomy, not problematic at this juncture. 9. Chronic anticoagulation secondary to history of deep venous thrombosis and bilateral pulmonary edema. RECOMMENDATIONS: We discussed treatment options with the patient. Risks and benefits of an occipital injection were discussed. The patient has been off her Xarelto almost 3 days. At this juncture, we will proceed with an occipital nerve block. Risks and benefits of the procedure were discussed with the patient. They include but are not limited to infection, worsening of pain, no improvement in pain, nerve damage, bleeding. The patient elects to proceed. PROCEDURE NOTE: The patient was taken to the procedure area. She was then placed perpendicular to the bed. The bed was elevated. The patient leaned forward resting her forehead on the side of bed. Her neck [place] [address] PAIN MANAGEMENT CONSULTATION Name: JANKI ROD Room: [facility]#: [id number] Admission: 07/16/18 Attend Phys: Claire Yoder MD Discharge: Date of : 39 Report #: [id number] was sterilely prepped with a chlorhexidine solution and allowed to dry. Palpation of the occipital area did reproduce the patient's discomfort. A 25-gauge needle was then advanced to the occipital area. Aspiration was negative. A total of 6 mL of 0.5% bupivacaine and 40 mg triamcinolone was injected. The patient tolerated the procedure well. There were no complications. She remained in the Pain Clinic for an appropriate amount of time. She will follow up in the future as needed. We would like to thank you for letting us participate in her care. We hope she continues to improve. The patient will stop taking her Xarelto prior to her next visit. At that time, we would then consider a cervical epidural steroid injection. A script for her medications have been written. We would like to thank you for letting us participate in her care. She will continue with the Oxycodone 5 mg 1 p.o. t.i.d. <ELECTRONICALLY SIGNED> By: Claire Yoder MD 07/21/18 0915 [id number]. Perfecto Yoder MD /nt
== END | disposition home or self-care (01) ==
LOC: M.PC 12:50
DX: M54.81 Occipital neuralgia (principal); M79.18 Myalgia, other site; M31.7 Microscopic polyangiitis; I10 Essential (primary) hypertension; Z98.890 Other specified postprocedural states; Z87.39 Personal history of other diseases of the musculoskeletal system and connective tissue; Z96.651 Presence of right artificial knee joint; Z79.01 Long term (current) use of anticoagulants; Z88.8 Allergy status to other drugs, medicaments and biological substances; Z79.899 Other long term (current) drug therapy

== ENCOUNTER → 2018-09-10 | Outpatient (CLI) | payer MEDICARE, OTHER ==
--- NOTE | ~2018-09-10 | PAINCON ---
[address] [address] PAIN MANAGEMENT CONSULTATION Name: JANKI ROD Room: [facility].#: [id number] Admission: 09/10/18 Attend Phys: Claire Yoder MD Discharge: Date of : 39 Report #: [id number] THIS REPORT FOR: //name// CC: Leona Friend DATE OF SERVICE: 09/10/2018 CHIEF COMPLAINT: Pain in the back of the neck, would like to get another injection. HISTORY: The patient is a 78-year-old female who has been followed in the Pain Clinic because of Occipital neuralgia and myofascial pain. She has undergone injections in the past and gleaned benefits from these. She is having some pain in the left side of her neck with some involvement of her jaw and down her shoulders. Also, has pain in her low back area and has had to undergo epidural steroid injections in that area. She feels that her leg is giving out. She was in a assisted for 2 to 3 weeks after a fracture. She has returned today with a desire to undergo another occipital injection. These have been beneficial in the past. Does continue to have a tightness and radiation into her left shoulder, which is the most problematic area. Rates it as a 7-8 today. Does continue to use Percocet 5 mg 1 to 2 t.i.d. Has had some left arm discomfort. ALLERGIES: DEMEROL, HYDROCODONE, VICODIN, TYLENOL. CURRENT MEDICATIONS: Tylenol Extra Strength, amlodipine 5 mg, Flexeril 10 mg p.r.n., Neurontin 300 mg q.a.m., 300 mg at noon, 600 mg evening, Lopressor 25 mg b.i.d., omeprazole 25 mg b.i.d., Percocet 5/325 one p.o. t.i.d., Requip 0.5 mg 2 tablets at bedtime, trazodone 150 mg at bedtime, prednisone 2.5 mg, Chlor-tab p.r.n. for allergies, 4 mg, vitamin B complex. PAIN CLINIC ASSESSMENT/PQRS: 1. History of osteoarthritic changes in the low back area and history of spinal stenosis. 2. The patient is not being treated for rheumatoid arthritis. 3. Occipital neuralgia, improved with injections in the past. 4. Height 5 feet 4 inches, weight 219 pounds, BMI is 37.6. 5 Blood pressure 133/77, heart rate 95, respiratory rate 16, room air saturation 98%, temperature 97.5. 6. Pain intensity 7/10. 7. Fall history: The patient has not fallen in the last 3 months, but does use a walker to ambulate. Does feel somewhat less stable under her feet. The patient is not on a blood thinning medication. 8. Hypertension. The patient is not [place] [address] PAIN MANAGEMENT CONSULTATION Name: JANKI ROD Room: [facility]#: [id number] Admission: 09/10/18 Attend Phys: Claire Yoder MD Discharge: Date of : 39 Report #: [id number] 9. Risk assessment tool. Low for opioid use. 10. Functional assessment tool. 11. Recreational drug use. The patient denies use of recreational drugs. 12. Tobacco. The patient denies use of tobacco. 13. Alcohol: The patient denies use of alcoholic beverages. PHYSICAL EXAMINATION: GENERAL: The patient is a well-developed, well-nourished white female. Appears her stated age. She is alert and oriented x 3. Her affect is appropriate. Speech is fluent. HEENT: Normocephalic, atraumatic. Extraocular eye muscles intact. The patient has pain and discomfort in the left as well as the right occipital area. Palpation in the left and right occipital area reproduce pain and discomfort. Also has pain is radiating down into her left shoulder. Pain in this area is reproduced by pressure in the occipital area as well. HEART: Regular rate. S1, S2. ABDOMEN: Nontender. Bowel sounds present. LUNGS: Clear to auscultation without rhonchi or rales. The patient has prosthetic left lower extremity. Has pain in her right leg. IMPRESSION: 1. Occipital neuralgia and myofascial pain involving left shoulder. 2. History of cervical radiculopathy undergone epidural steroid injections in the past with benefit. 3. Lumbar radicular pain, lower extremity and lower back area. 4. History of osteoarthritis involving both shoulders, status post shoulder surgeries. 5. Polyarteritis, status post multiple back surgeries. 6. 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 7. History of right foot with multiple surgeries. 8. History of intestinal obstruction and colostomy not problematic at this juncture. 9. Chronic anticoagulation secondary to deep venous thrombosis and bilateral pulmonary edema. RECOMMENDATIONS: We discussed treatment options with the patient. At this juncture, we will proceed with a trigger point injection to the left as well as the right areas. Both are causing significant pain. PROCEDURE NOTE: The patient was taken to the procedure area. She was then placed near the table. The table was elevated. The patient did lean forward and resting her forehead upon the table. Her neck was sterilely prepped. A 25-gauge needle was then advanced into the left occipital area. The patient states that this did reproduce her discomfort. Aspiration was negative. A total of 6 mL of 0.5% bupivacaine and 40 mg triamcinolone was injected into the [place] [address] PAIN MANAGEMENT CONSULTATION Name: JANKI ROD Room: [facility]#: [id number] Admission: 09/10/18 Attend Phys: Claire Yoder MD Discharge: Date of : 39 Report #: [id number] The patient will resume the use of her Xarelto. Follow as an outpatient. By: [id number]. Perfecto Yoder MD /[place]
== END | disposition home or self-care (01) ==
LOC: M.PC 04:50
DX: M79.18 Myalgia, other site (principal); M54.81 Occipital neuralgia; M54.16 Radiculopathy, lumbar region; Z96.651 Presence of right artificial knee joint; Z98.890 Other specified postprocedural states; Z98.0 Intestinal bypass and anastomosis status; Z79.01 Long term (current) use of anticoagulants; Z79.899 Other long term (current) drug therapy; Z86.711 Personal history of pulmonary embolism; Z88.8 Allergy status to other drugs, medicaments and biological substances

== ENCOUNTER → 2019-01-07 | Outpatient (CLI) | payer MEDICARE, OTHER ==
--- NOTE | ~2019-01-07 | PAINCON ---
[address] [address] PAIN MANAGEMENT CONSULTATION Name: JANKI ROD Room: [facility] CherAyannaChris.#: [id number] Admission: 01/07/19 Attend Phys: Claire Yoder MD Discharge: Date of : 39 Report #: [id number] THIS REPORT FOR: //name// CC: Leona Friend DATE OF SERVICE: 01/07/2019 CHIEF COMPLAINT: Neck pain, back pain, and knee pain. HISTORY: The patient is a 78-year-old female who has been followed in the Pain Clinic because of chronic pain. She has had some pain in the occipital areas. She has undergone injections to the affected areas, particularly on the left side. She feels that the electrical shooting pain she had been experiencing in the past has subsided. Consider filling electrical shock. It feels like the "hair just is standing on in." She has less pain in her arm. She was started on a prednisone dosing regimen, about 3 days ago. The patient had pain, which was pretty much global. It involved her hands, back, and knees. She has noted improvement in her hand since she has been taking the medication. Does note some problems with swelling in her right leg. She has tried compression garments, but is unable to place them because of the weakness in her hands. She was told that she had a trace of blood in her urine. She is not sure what this means. 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 She is on chronic anticoagulation therapy. She has noted increased and easier bruising of her arms. She wonders whether or not decreasing her Xarelto is possible. She has used [id number] nonsteroidal anti-inflammatory medications. She is having difficulty in buying certain medications, because she had at this point, at "donut hole" in her insurance. She would like to have her medications renewed. ALLERGIES: DEMEROL, HYDROCODONE, VICODIN, TYLENOL. MEDICATIONS: Extra strength Tylenol, amlodipine 5 mg, Flexeril 10 mg p.r.n., Neurontin 300 mg a.m., 300 mg at noon and 600 mg in the evening, Lopressor 25 mg b.i.d., omeprazole 25 mg b.i.d., Percocet 5/325 one p.o. t.i.d., Requip 0.5 mg 2 tablets at bedtime, trazodone 150 mg at bedtime, prednisone approximately 10 mg, newly started, Chlor-tab p.r.n. for allergies, vitamin B complex. PAIN CLINIC ASSESSMENT/PQRS: 1. History of osteoarthritic changes in her low back. The patient does have a history of spinal stenosis. 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 Walks with a prosthesis. 2. History of occipital neuralgia, which has improved. The patient is not being treated for rheumatoid arthritis. 3. Height 5 feet 4 inches, weight 216 pounds, BMI is 37.7. [place] [address] PAIN MANAGEMENT CONSULTATION Name: JANKI RODN [id number] Admission: 01/07/19 Attend Phys: Claire Yoder MD Discharge: Date of : 39 Report #: [id number] 4. Vital Signs: Blood pressure 139/62, heart rate 71, respiratory rate 18, room air saturation 97%, and temperature 98.5. 5. Pain score, 4/10. 6. Fall history: The patient has not fallen in the last 3 months. She is walking with a rolling walker. Does note some instability when she is standing and walking with a cane. 7. Blood thinner. The patient is on a blood thinning medication, Xarelto. Notes increased bruising in her right forearm as well as the left forearm. 8. Hypertension. The patient is not being treated for hypertension. 9. Risk assessment tool, low for opioid use. 10. Functional assessment tool. 11. Recreational drug use. The patient denies use of recreational drugs. 12. Tobacco: The patient denies use of tobacco. 13. Alcohol: The patient denies use of alcoholic beverages. PHYSICAL EXAMINATION: GENERAL: The patient is a well-developed, well-nourished white female. Appears her stated age. She is alert and oriented x 3. Her affect is appropriate. Speech is fluent. HEENT: Normocephalic, atraumatic. Extraocular eye muscles intact. Sclerae nonicteric. Mucous membranes are moist. NECK: Without adenopathy. The patient has some decreased pain in the left and the right occipital areas. These are the areas that have been most problematic in the past. HEART: Regular rate. S1, S2. ABDOMEN: Nontender. Bowel sounds present. LUNGS: Clear to auscultation without rales or rhonchi. EXTREMITIES: The patient is able to move her upper extremities and has a better dog food dough mixer strength now that she has started the steroid dosing. Continued pain in the right leg. Some edema in the left and the right lower extremity. IMPRESSION: 1. History of Occipital neuralgia and myofascial pain improved after injections, trigger points. 2. History of cervical radiculopathy undergone epidural steroid injections in the past. 3. Lumbar radicular pain, lower extremity involving the low back area. 4. History of osteoarthritis involving both shoulders, status post shoulder surgeries. 5. Polyarteritis, status post multiple back surgeries. 6. 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 7. History of right foot and multiple surgeries. 8. History of intestinal obstruction and colostomy not problematic at this problem. 9. Chronic anticoagulation secondary to deep venous thrombosis [place] [address] PAIN MANAGEMENT CONSULTATION Name: MARCELJANKI Room: [facility]#: [id number] Admission: 01/07/19 Attend Phys: Claire Yoder MD Discharge: Date of : 39 Report #: [id number] RECOMMENDATIONS: We discussed treatment options with the patient. At this juncture, we will continue with her medications. She feels that the oxycodone medication is helpful. She uses it episodically. She is having more and more bruising. She is wondering whether or not the nonsteroidal anti-inflammatory medications can be the cause. She is in the "donut hole", so she finds paying for her medications difficult at this juncture. Possibility of Celebrex has come up. The patient is wondering whether or not this medication could be used because it is decreased affect problems with platelets and whether or not she can take this at least episodically with her Xarelto. States that she did have some mild amount of blood in her urine exam. She wonders whether or not this is secondary to use of Xarelto. I asked that she follow up with her physician who is writing for this medication whether or not that is a common occurrence or some other ____ evaluation of the kidney/urinalysis needs to be undertaken in the future. The patient feels that she is doing better now that she has been started on 10 mg prednisone tablets at this juncture. A script for her medications of oxycodone 5 mg 1 p.o. t.i.d. have been written. The patient will follow up with her primary regarding whether or not Celebrex is an option with the Xarelto. We would like to thank you for letting us participate in her care. We hope she continues to improve. By: [id number]. Perfecto Yoder MD /mackenzie
== END ==
LOC: M.PC 05:15
DX: M54.16 Radiculopathy, lumbar region (principal); M54.12 Radiculopathy, cervical region; M19.012 Primary osteoarthritis, left shoulder; M19.011 Primary osteoarthritis, right shoulder; M54.81 Occipital neuralgia; M30.0 Polyarteritis nodosa; I82.409 Acute embolism and thrombosis of unspecified deep veins of unspecified lower extremity; Z96.651 Presence of right artificial knee joint; Z79.01 Long term (current) use of anticoagulants; Z88.8 Allergy status to other drugs, medicaments and biological substances; Z79.899 Other long term (current) drug therapy

== ENCOUNTER → 2019-03-25 | Outpatient (CLI) | payer MEDICARE, OTHER ==
--- NOTE | 2019-04-12 13:25 | PAINCON ---
[address] [address] PAIN MANAGEMENT CONSULTATION Name: JANKI ROD Room: [facility] ANGELO CherRanjan.#: [id number] Admission: 03/25/19 Attend Phys: Claire Yoder MD Discharge: Date of : 39 Report #: [id number] THIS REPORT FOR: //name// CC: Leona Friend DATE OF SERVICE: 03/25/2019 CHIEF COMPLAINT: Here for an injection. I am having pain in my arm, numbness and tingling down in my fingers. HISTORY: The patient is a 78-year-old female who has been seen in the pain clinic because of chronic pain. As you may recall, she has had neck pain. Injections in the left neck area over a period of time have improved the pain and discomfort. She is having less of the facial pain, less pain on the lateral side of her face. Overall, that has improved. Continues to have some back pain. Has some knee pain as well. Her new complaint is that of numbness and tingling down into her arms and into her hands. There is a burning sensation associated with it. Notes that she has some difficulty making fist as well as manipulating her hands when she awakens. She is somewhat stressed. Her older sister who is 5 years older, has had a stroke. This is in her fifth stroke. This has been more damaging than the previous TIAs. The patient feels that she should go see her and plans to go to [place] in the next week or so. At this point, because of her arm pain and hand pain, she feels that an epidural steroid injection would be beneficial and has returned to the pain clinic for that. ALLERGIES: DEMEROL, HYDROCODONE, VICODIN, TYLENOL. CURRENT MEDICATIONS: Extra strength Tylenol, amlodipine 5 mg, Flexeril 10 mg p.r.n., Neurontin 300 mg a.m., 300 mg at noon and 600 mg evening, Lopressor 25 mg b.i.d., omeprazole 25 mg b.i.d., Percocet 5/325 one p.o. t.i.d., Requip 0.5 mg 2 tablets at bedtime, trazodone 150 mg at bedtime, prednisone on occasion, Chlor-Tab p.r.n. for allergies, vitamin B complex. PAIN CLINIC ASSESSMENT/PQRS: 1. The patient does have history of spinal stenosis in the lower back area. Notes some lumbar radicular pain as a result of that. 2. 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 Walks with a prosthetic leg. 3. History of occipital neuralgia, which has improved. The patient is not being treated for rheumatoid arthritis. 4. Height 5 feet 4 inches, weight 214 pounds, BMI is 36.6. 5. Vital Signs: Blood pressure 124/76, heart rate 84, respiratory rate 16, room air saturation is 95, temperature 97.8. 6. Pain score 6/10. [address] [place] [address] PAIN MANAGEMENT CONSULTATION Name: JANKI ROD Room: [facility]#: [id number] Admission: 03/25/19 Attend Phys: Claire Yoder MD Discharge: Date of : 39 Report #: [id number] 7. Fall history: The patient has not fallen since we saw her last, does walk with a cane. 8. History of occipital neuralgia, improved after injections in the past. The patient is not being treated for rheumatoid arthritis. 9. The patient is walking with a cane. She is not using the rolling walker that she was using in the past. 10. Blood thinner. The patient is on Xarelto. She has stopped taking the medication in hopes of undergoing a cervical epidural injection. 11. Hypertension. The patient is not being treated for hypertension. 12. Risk assessment tool, low for opioid use. 13. Functional assessment tool. 14. Recreational drug use. The patient denies use of recreational drugs. 15. Tobacco: The patient denies use of tobacco. 16. Alcohol. The patient denies use of alcoholic beverages. PHYSICAL EXAMINATION: GENERAL: The patient is a well-developed, well-nourished white female. Appears her stated age. She is alert and oriented x 3. Her affect is appropriate. Speech is fluent. HEENT: Normocephalic, atraumatic. Extraocular eye muscles intact. Sclerae nonicteric. Mucous membranes are moist. NECK: Without adenopathy or JVD. The patient has some decreased pain in the right and left occipital areas. Less problematic than they were in the past. HEART: Regular rate. S1, S2. ABDOMEN: Nontender. Bowel sounds present. EXTREMITIES: Upper extremity muscle strength judged to be 4+/5 for the major muscle groups of the upper extremity. The patient has some pain and discomfort with pain that radiates down into her left arm with numbness and burning sensation. Feels that her hands are less functional. Sometimes uses one hand to open and move the other fingers initially. IMPRESSION: 1. History of cervical radiculopathy with exacerbation of cervical symptomatology involving her arms, particularly on the left side and weakness down into her fingers with numbness and burning. 2. Lumbar radicular pain involving the low back area. 3. History of osteoarthritis of both shoulders, status post surgeries. 4. Polyarthritis, status post multiple back surgeries. 5. 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 6. History of right foot with multiple surgeries. 7. History of gastrointestinal obstruction and colonostomy, not problematic at this juncture. 8. Chronic anticoagulation secondary to deep venous thrombosis and bilateral pulmonary edema. RECOMMENDATIONS: We discussed [place] [address] PAIN MANAGEMENT CONSULTATION Name: MARCELJANKI PERRY Room: [facility]#: [id number] Admission: 03/25/19 Attend Phys: Claire Yoder MD Discharge: Date of : 39 Report #: [id number] benefits of a cervical epidural steroid injection were discussed. They include but are not limited to infection, worsening pain, no improvement in pain, bleeding, nerve damage and the patient elects to proceed. PROCEDURE NOTE: The patient was taken to the procedure area. She was then assisted in getting on the examination table. A pillow was placed under her shoulders to improve positioning. Fluoroscopy using the anterior, posterior as well as lateral viewing were implemented. A 25-gauge needle was then used to anesthetize the skin at C7-T1 interspace. A 17-gauge Tuohy with loss of resistance technique was used to gain access to the epidural space. There was no CSF, heme or paresthesia. A total of 120 mg triamcinolone was injected. The patient tolerated the procedure well. There were no complications. A total of 10 seconds fluoroscopy time was used. The patient will follow up in the near future. We would like to thank you for letting us participate in her care. We hope she continues to improve. We hope that things go well with her and her sister who has had the 5 strokes, who she is scheduled to visit in [place] in the near future. <ELECTRONICALLY SIGNED> By: Claire Yoder MD 04/12/19 1325 [id number]. Perfecto Yoder MD /nt
== END | disposition home or self-care (01) ==
LOC: M.PC 01:01
DX: M54.12 Radiculopathy, cervical region (principal); G89.29 Other chronic pain; M54.16 Radiculopathy, lumbar region; M19.90 Unspecified osteoarthritis, unspecified site; Z98.890 Other specified postprocedural states; Z96.651 Presence of right artificial knee joint; Z96.642 Presence of left artificial hip joint; Z98.0 Intestinal bypass and anastomosis status; Z79.01 Long term (current) use of anticoagulants; Z86.718 Personal history of other venous thrombosis and embolism; Z79.899 Other long term (current) drug therapy; Z88.8 Allergy status to other drugs, medicaments and biological substances

== ENCOUNTER → 2019-06-10 | Outpatient (CLI) | payer MEDICARE, OTHER ==
[~2019-06-10] MED LIST changes: +METFORMIN HCL500 M3 PO
--- NOTE | ~2019-06-10 | PAINCON ---
[address] [address] PAIN MANAGEMENT CONSULTATION Name: JANKI ROD Room: [facility].#: [id number] Admission: 06/10/19 Attend Phys: Claire Yoder MD Discharge: Date of : 39 Report #: [id number] THIS REPORT FOR: //name// CC: Leona Friend DATE OF SERVICE: 06/10/2019 PRIMARY CARE PHYSICIAN: Leona Rocha DO CHIEF COMPLAINT: Pain in the hand helped after the cervical injection. HISTORY: The patient is an 79-year-old female who has been followed in the Pain Clinic. As you may recall, she suffers from cervical radiculopathy as well as lumbar radiculopathy. After the last cervical epidural steroid injection, she has noted some improvement in her hand. She is having less hand pain. She is having some problems with her balance. She is walking using a walker at home. Finds that she is less stable than she had been. She does have some pain in her lower portion of her back. She can pinpoint the area in her left lower back with her thumb. Palpation in this area does reproduce a component of the pain. Overall, she feels that her pain is reasonable. She does not feel that she needs an injection today. She will return to the Pain Clinic should her pain return. She has been told that she has diabetes. She will start taking an oral pill to help with her blood sugars. ALLERGIES: DEMEROL, HYDROCODONE, VICODIN, TYLENOL. CURRENT MEDICATIONS: Extra Strength Tylenol, amlodipine 5 mg, Flexeril 10 mg p.r.n., Neurontin 300 mg, 300 mg afternoon and 600 mg evening, Lopressor 25 mg b.i.d., omeprazole 25 mg, Percocet 5/325 one p.o. t.i.d., Requip 0.5 mg 2 tablets at bedtime, trazodone 150 mg at bedtime, prednisone on occasion, Chlor-Tab p.r.n. for allergies, vitamin B complex, Coumadin 5 mg daily, metformin 500 mg daily. PAIN CLINIC ASSESSMENT AND PQRS: 1. The patient has a history of spinal stenosis in the lower portion of her back. Notes some improvement in the lumbar area. Has had cervical radiculopathy and the neck area has improved after the last injection. The patient is not being treated for rheumatoid arthritis. 2. Height 5 feet 4 inches, weight 214 pounds, BMI is 36.9. 3. Vital Signs: Blood pressure 148/66, heart rate 88, respiratory rate 18, room air saturation is 95%, temperature 98.1. 4. Pain intensity 4/10. 5. Fall history: The patient has not fallen since we saw her last, but does note some instability when walking. She uses a walker. Pain score 4/10. [place] [address] PAIN MANAGEMENT CONSULTATION Name: JANKI ROD Room: [facility]#: [id number] Admission: 06/10/19 Attend Phys: Claire Yoder MD Discharge: Date of : 39 Report #: [id number] 6. Hypertension: The patient is not being treated for hypertension. 7. Opioids: The patient uses medications as directed. 8. Functional assessment tool, low for opioid use. 9. Recreational drug use: The patient denies. 10. Tobacco: The patient denies. 11. Alcohol: The patient denies use of alcoholic beverages. PHYSICAL EXAMINATION: GENERAL: The patient is a well-developed, well-nourished white female. Appears her stated age. She is alert and oriented x 3. Her affect is appropriate. Speech is fluent. HEENT: Normocephalic, atraumatic. Extraocular eye muscles intact. Sclerae nonicteric. Mucous membranes are moist. NECK: Without adenopathy. The patient notes some decreased range of motion in her neck. States that she sometimes sits with her head leaning to the left side. The pain is not associated with this. HEART: Regular rate. S1, S2. ABDOMEN: Nontender. Bowel sounds present. EXTREMITIES: Upper extremity muscle strength judged to be 4+/5 for the major muscle groups in the upper extremity. The patient has some pain and discomfort in her right leg with some numbness and tingling down into her feet. There is a burning sensation. IMPRESSION: 1. History of cervical radiculopathy, improved after the last cervical epidural steroid injection. 2. Lumbar radicular pain involving the low back area. 3. Myofascial pain in the low back area. 4. History of osteoarthritis of both shoulders, status post surgeries. 5. Polyarthritis, status post multiple back surgeries. 6. Right total knee replacement and left leg with left prosthetic hip. 7. History of right foot pain, status post multiple surgeries. 8. History of gastrointestinal obstruction. 9. Chronic anticoagulation secondary to deep venous thrombosis and bilateral pulmonary edema. RECOMMENDATIONS: We discussed treatment options with the patient. At this juncture, we will continue with her current medical regimen. A script for her medications have been rewritten. She will continue with oxycodone 5/325 one p.o. t.i.d. as needed. She is aware that opioid medications can be helpful. They can be less effective as time goes on secondary to development of tolerance. She feels that the medications are helpful. She has had some pain in her low back area. She has had pain in the left posterior area near the buttocks. Palpation in this area can reproduce pain and a trigger point is noted. She feels that her pain overall is reasonably controlled. She might consider a trigger point injection in the future. She [place] [address] PAIN MANAGEMENT CONSULTATION Name: MARCELJANKI Room: [facility]#: [id number] Admission: 06/10/19 Attend Phys: Claire Yoder MD Discharge: Date of : 39 Report #: [id number] any concerns. We would like to thank you for letting us participate in her care. We hope she continues to improve. By: [id number]. Perfecto Yoder MD /nt
== END ==
LOC: M.PC 09:30
DX: M54.16 Radiculopathy, lumbar region (principal); M54.12 Radiculopathy, cervical region; M13.89 Other specified arthritis, multiple sites; G89.29 Other chronic pain; Z79.891 Long term (current) use of opiate analgesic; Z79.899 Other long term (current) drug therapy

== ENCOUNTER → 2019-07-29 | Outpatient (CLI) | payer MEDICARE, OTHER ==
--- NOTE | ~2019-07-29 | PAINCON ---
[address] [address] PAIN MANAGEMENT CONSULTATION Name: MARCELJANKI SHANKSN Room: [facility].#: [id number] Admission: 07/29/19 Attend Phys: Claire Yoder MD Discharge: Date of : 39 Report #: [id number] THIS REPORT FOR: //name// cc: Leona Rocha Ahmad W. DO THIS REPORT FOR: //name// CC: Leona Friend DATE OF SERVICE: 07/29/2019 CHIEF COMPLAINT: Neck pain. HISTORY OF PRESENT ILLNESS: The patient is an 79-year-old female, who has been followed in the Pain Clinic because of chronic low back pain. She has also had some pain in the neck and occipital area. She returns today indicating that pain is most problematic in the neck and radiating down into her hands. She notes that the pain started to worsen about a month ago. She is beginning to have trouble gripping items. She feels at this juncture this is the worst episode of this weakness and discomfort she has experienced. She rates it as a 6-8/10. She has returned to the Pain Clinic with hopes of undergoing an epidural steroid injection. She does have diabetes. ALLERGIES: DEMEROL, HYDROCODONE, VICODIN, TYLENOL. CURRENT MEDICATIONS: Extra Strength Tylenol, amlodipine 5 mg, Flexeril 10 mg, Neurontin 300 mg in the afternoon and 600 mg in the evening, Lopressor 25 mg b.i.d., omeprazole 25 mg, Percocet 5/325 one p.o. t.i.d., Requip 0.5 mg 2 tablets at bedtime, trazodone 150 mg at bedtime, prednisone on occasion, Chlortab p.r.n. allergies, vitamin B complex, Coumadin 5 mg daily, metformin 500 mg daily. PAIN CLINIC ASSESSMENT/PQRS: 1. The patient does have a history of spinal stenosis in the lower portion of her back; also has cervical radicular pain. This involves her neck with pain down into her hands. The patient is not being treated for rheumatoid arthritis. 2. Height 5 feet 4 inches, weight 218 pounds, body mass index is 37.9. 3. Vital signs: Blood pressure 146/73, heart rate 89, respiratory rate 16, room air saturation 97%, and temperature 97.6. 4. Pain intensity: 6-7/10. 5. Fall history: The patient has not fallen in the last 3 months. The patient does have some instability with walking. She is using a walker at this point. 6. Hypertension: The patient is not being treated for hypertension. 7. Opioids: The [place] [address] PAIN MANAGEMENT CONSULTATION Name: JANKI RODN Room: [facility]#: [id number] Admission: 07/29/19 Attend Phys: Claire Yoder MD Discharge: Date of : 39 Report #: [id number] 8. Functional assessment tool: Low for opioid use. 9. Recreational drug use: The patient denies. 10. Tobacco: The patient denies. 11. Alcohol: The patient denies use of alcoholic beverages. PHYSICAL EXAMINATION: GENERAL: The patient is a well-developed, well-nourished white female. She appears her stated age of 79 years' old. She is alert and oriented. Her affect is appropriate. Speech is fluent. HEENT: Normocephalic, atraumatic. Extraocular eye muscles are intact. Sclerae are anicteric. Mucous membranes are moist. NECK: Without adenopathy or JVD. 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 HEART: Regular rate, S1, S2. ABDOMEN: Nontender. LUNGS: Clear to auscultation. EXTREMITIES: Upper extremity muscle strength judged to be 4/5 for the major muscle groups in the upper extremity; lower extremity, right leg with some numbness and tingling into her foot. The patient has a burning sensation. The patient has a prosthetic left leg. IMPRESSION: 1. Cervical radiculopathy. 2. Lumbar radiculopathy involving the low back area. 3. Myofascial pain in the low back area. 4. History of osteoarthritis in both shoulders, status post surgeries. 5. Polyarthritis, status post multiple back surgeries. 6. 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 7. History of right foot pain, status post multiple surgeries. 8. History of gastrointestinal obstruction. 9. Chronic anticoagulation secondary to deep venous thrombosis and bilateral pulmonary edema. RECOMMENDATIONS: We discussed treatment options with the patient. At this juncture, the patient is having more pain involving her arms and down into her hands. She notes some weakness over the last month. She is having trouble gripping and holding onto items. She would like to proceed with a cervical epidural steroid injection. She feels this is the worst as it has been in a while. We discussed the risks and benefits of a cervical epidural steroid injection. They could include but are not limited to infection, worsening the pain, no improvement in pain, nerve damage, and bleeding. The patient elects to proceed. PROCEDURE NOTE: The patient was taken to the [place] [address] PAIN MANAGEMENT CONSULTATION Name: MARCELJANKI PERRY Room: [facility]#: [id number] Admission: 07/29/19 Attend Phys: Claire Yoder MD Discharge: Date of : 39 Report #: [id number] assisted in getting on examination table. A pillow was placed under her shoulders to bolster and improve positioning. Fluoroscopy using anterior and posterior as well as lateral viewing was implemented. A 0.25% bupivacaine was infiltrated at the C7-T1 interspace. A 17-gauge Tuohy with loss of resistance technique was used to gain access to the epidural space. There was no CSF, heme, or paresthesia. A total of 120 mg triamcinolone was injected. The patient tolerated the procedure well. There were no complications. A total of about 12 seconds of fluoroscopy time was used. A script for oxycodone 5 mg 1 p.o. t.i.d. has been rewritten. The patient will call us if she has any concerns. We would like to thank you for letting us participate in her care. We hope she continues to improve. By: [id number]. MD abbie Dalal
== END | disposition home or self-care (01) ==
LOC: M.PC 02:14
DX: M54.12 Radiculopathy, cervical region (principal); G89.29 Other chronic pain; E11.9 Type 2 diabetes mellitus without complications; Z98.890 Other specified postprocedural states; Z79.899 Other long term (current) drug therapy; Z88.8 Allergy status to other drugs, medicaments and biological substances; Z79.891 Long term (current) use of opiate analgesic

== ENCOUNTER → 2019-11-04 | Outpatient (CLI) | payer MEDICARE, OTHER ==
--- NOTE | 2019-11-05 15:54 | PAINCON ---
[address] [address] PAIN MANAGEMENT CONSULTATION Name: MARCELJANKI PERRY Room: [facility].#: [id number] Admission: 11/04/19 Attend Phys: Claire Yoder MD Discharge: Date of : 39 Report #: [id number] THIS REPORT FOR: //name// cc: Leona Rocha Ahmad W. DO ~ THIS REPORT FOR: //name// CC: Leona Yoder DATE OF SERVICE: 11/04/2019 CHIEF COMPLAINT: "Pain in my neck and pain down my left arm and I have pain in my left wrist." HISTORY: The patient is an 79-year-old female who has been followed in the pain clinic. She suffers from pain and discomfort in the low back area. She also has had pain and discomfort in the cervical area. She has noted pain that is radiating from her left neck area and down into the shoulder, forearm and down into her hand. 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 She has undergone cervical epidural steroid injections in the past. She was having pain on the left and right side. The right hand side is improved, but the left hand continues to be problematic and painful. She has returned today. She feels that another injection in the neck area might prove beneficial. She has also noted some increased pain and discomfort in her right wrist. Flexion, extension and rotation of her wrist significantly increases. She has some soreness around the area of her wrists and particularly down in the area of her thumb. She notes increased pain and discomfort with movement of her thumb. She has fallen about 3 times in the last few weeks. She feels that her balance is somewhat problematic. She states that she is using a walker and rolling walker at home. She has returned today for an injection to help with the left hand pain and arm pain. ALLERGIES: DEMEROL, HYDROCODONE, VICODIN, AND TYLENOL. CURRENT MEDICATIONS: Extra Strength Tylenol, amlodipine 5 mg, Flexeril 10 mg, Neurontin 300 mg morning and 600 mg evening, Lopressor 25 mg b.i.d., omeprazole 25 mg, Percocet 5/325 one p.o. t.i.d., Requip 0.5 mg 2 tablets at bedtime, trazodone 150 mg at bedtime, prednisone occasional use chlortab p.r.n. allergies, vitamin B complex, Coumadin 5 mg daily, metformin 500 mg daily. PAIN CLINIC ASSESSMENT AND PQRS: 1. The patient has a history of spinal stenosis in the lower portion of her back. She also has some cervical radicular pain. This involves her neck with pain radiating down into her left arm. At this point, the patient is not [place] [address] PAIN MANAGEMENT CONSULTATION Name: JANKI ROD Room: [facility]#: [id number] Admission: 11/04/19 Attend Phys: Claire Yoder MD Discharge: Date of : 39 Report #: [id number] 2. Height 5 feet 4 inches, weight 218 pounds, BMI is 37. 3. Vital signs: Blood pressure 129/54, heart rate 78, respiratory rate 18, room air saturation 98%, temperature 98 degrees. 4. Pain intensity 6/10. 5. Fall history. The patient has fallen on about 3 occasions. She feels that her balance is somewhat off. 6. Hypertension. The patient is not being treated for hypertension. 7. Opioids. The patient uses opioid medications as directed. 8. Functional assessment tool, low for opioid use. 9. Recreational urine drug use. The patient denies. 10. Tobacco: The patient denies. 11. Alcohol. The patient denies use of alcoholic beverages. PHYSICAL EXAMINATION: GENERAL: The patient is a well-developed, well-nourished white female. Appears her stated age. She is alert and oriented x 3. Her affect is appropriate. Speech is fluent. HEENT: Normocephalic, atraumatic. Extraocular eye muscles intact. Sclerae nonicteric. Mucous membranes are moist. NECK: Without adenopathy. The patient does have some pain and discomfort in the lateral portion in the postauricular area on the left. She has pain and discomfort in the left side with pain radiating down left shoulder, arm and down into the forearm. She perceives some weakness with fence post cutter strength. HEART: Regular rate. ABDOMEN: Nontender. LUNGS: Generally clear to auscultation. EXTREMITIES: Upper extremity muscle strength judged to be 4- on the left and has pain in the right leg with some numbness and tingling down into her foot. She has a prosthetic left leg. IMPRESSION: 1. Cervical radiculopathy. 2. Left arm pain consistent with De Quervain's tenosynovitis. 3. History of lumbar radiculopathy in the low back area. 4. Myofascial pain in the low back area. 5. History of osteoarthritis in both shoulders, status post surgeries. 6. Polyarthritis with multiple back surgeries. 7. 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 8. History of right foot pain, status post multiple surgeries. 9. Gastroesophageal or gastrointestinal obstruction. 10. Chronic anticoagulation secondary to deep venous thrombosis and bilateral pulmonary edema. RECOMMENDATIONS: We discussed treatment options with the patient. The risks and benefits of an epidural steroid injection in the cervical area were again discussed. Possible complications of the procedure, [place] [address] PAIN MANAGEMENT CONSULTATION Name: JANKI ROD Room: [facility]#: [id number] Admission: 11/04/19 Attend Phys: Claire Yoder MD Discharge: Date of : 39 Report #: [id number] not limited to infection, worsening pain, increase muscle soreness, bleeding, nerve damage, spinal headache and the patient elects to proceed. PROCEDURE NOTE: The patient was taken to the procedure area. She was then assisted in getting on examination table. Her back was sterilely prepped with a Betadine solution and allowed to dry. Fluoroscopy using anterior, posterior as well as lateral viewing were implemented. A total of 120 mg triamcinolone was injected at the C7-T1 interspace. There were no complications. The patient will follow up in the near future. In about 2 weeks we will have the patient return. If she still is having pain in the left wrist area we will consider an injection for the De Quervain's tenosynovitis. The patient is somewhat saddened that her son . She has a second son who has stage 4 cancer. She feels like she has a lot of pain at this point. A script for oxycodone 5/325 one p.o. t.i.d., 90 tablets have been provided. We would like to thank you for letting us participate in her care. e hope she continues to improve. <ELECTRONICALLY SIGNED> By: Claire Yoder MD 11/05/19 1554 [id number]. Perfecto Yoder MD /nt
== END | disposition home or self-care (01) ==
LOC: M.PC 03:57
PROVIDERS: ATTEND Anesthesiology Pain Medicine
DX: M54.12 Radiculopathy, cervical region (principal); M79.18 Myalgia, other site; M25.532 Pain in left wrist; M19.90 Unspecified osteoarthritis, unspecified site; Z98.890 Other specified postprocedural states; Z79.899 Other long term (current) drug therapy; Z96.641 Presence of right artificial hip joint; Z79.01 Long term (current) use of anticoagulants; Z88.8 Allergy status to other drugs, medicaments and biological substances

== ENCOUNTER → 2019-11-18 | Outpatient (CLI) | payer MEDICARE, OTHER ==
--- NOTE | 2019-12-09 15:40 | PAINCON ---
[address] [address] PAIN MANAGEMENT CONSULTATION Name: JANKI ROD Emerson Room: [facility]#: [id number] Admission: 11/18/19 Attend Phys: Claire Yoder MD Discharge: Date of : 39 Report #: [id number] THIS REPORT FOR: //name// cc: Leona Rocha Ahmad W. DO THIS REPORT FOR: //name// CC: Leona Friend DATE OF SERVICE: 11/18/2019 CHIEF COMPLAINT: Pain in the left wrist. HISTORY: The patient is an 79-year-old female who has been seen in the Pain Clinic because of chronic back pain as well as cervical pain. She has undergone a cervical epidural steroid injection. She has noticed some improvement. She has been having pain in her left wrist. She is considering an injection in the left wrist area because of the chronic pain. She feels that the last cervical epidural steroid injection was beneficial. Does note that "it is beginning to wear off." Has pain, which is most problematic at this juncture in the left wrist area. She has been using her medication of Percocet. She has stopped the Warfarin medication. She would like to proceed with an injection in the left wrist area to help with her pain. ALLERGIES: DEMEROL, HYDROCODONE, VICODIN, TYLENOL. CURRENT MEDICATIONS: Extra Strength Tylenol, amlodipine 5 mg, Flexeril 10 mg, Neurontin 300 mg in the morning and 600 mg in the evening, Lopressor 25 mg b.i.d., omeprazole 25 mg, Percocet 5/325 one p.o. t.i.d., Requip 0.5 mg 2 tablets at bedtime, trazodone 150 mg at bedtime, Chlortab p.r.n., vitamin B complex, Coumadin 5 mg daily, and metformin 500 mg daily. PAIN CLINIC ASSESSMENT/PQRS: 1. The patient has a history of spinal stenosis in the lower portion of her back. She also has cervical radicular pain. This involves her neck and has pain radiating down to her left arm. 2. Height 5 feet 4 inches, weight 216 pounds, BMI is 37. 3. Vital signs: Blood pressure 143/52, heart rate 71, respiratory rate 14, room air saturation 98%, temperature 98.3. 4. Pain score, 4/10. 5. Fall history: The patient has not fallen since we saw her last, does lose her balance somewhat. 6. Hypertension. The patient is not being treated for hypertension. 7. Opioids. The [place] [address] PAIN MANAGEMENT CONSULTATION Name: MARCELJANKI Emerson Room: [facility]#: [id number] Admission: 11/18/19 Attend Phys: Claire Yoder MD Discharge: Date of : 39 Report #: [id number] 8. Functional assessment tool, low for opioid use. 9. Recreational drug use. The patient denies. 10. Tobacco: The patient denies. 11. Alcohol: The patient denies. PHYSICAL EXAMINATION: GENERAL: The patient is a well-developed, well-nourished white female. Appears her stated age. She is alert and oriented x 3. Her affect is appropriate. Speech is fluent. HEENT: Normocephalic, atraumatic. Extraocular eye muscles intact. Sclerae nonicteric. Mucous membranes are moist. NECK: Without adenopathy or JVD. The patient is wearing a mask. Has pain radiating down into the left arm and forearm. Complains of extreme pain in the area of the forearm. Palpation in this area can reproduce pain and discomfort. HEART: Regular rate. ABDOMEN: Nontender. LUNGS: Clear to auscultation. EXTREMITIES: Upper extremity muscle strength judged to be 4- on the left and some weakness in the right leg with numbness and tingling down into her foot. Does have a prosthetic leg on the left. IMPRESSION: 1. De Quervain's tenosynovitis. 2. History of cervical radiculopathy. 3. History of lumbar radicular pain, low back area. 4. Myofascial pain. 6. History of osteoarthritis involving the shoulders, status post surgeries. 7. Polyarteritis with multiple back surgeries. 8. Left total hip replacement with a prosthetic leg. 9. History of right foot pain, status post multiple surgeries. 10. Gastroesophageal/gastrointestinal obstruction. 11. Chronic anticoagulation secondary to deep venous thrombosis and bilateral pulmonary edema. RECOMMENDATIONS: We discussed treatment options with the patient. At this juncture, the patient is still having pain and discomfort in her left hand. We discussed the risks and benefits of an injection. The reason for pain and discomfort were discussed. A video was used to show the pathophysiology of the condition as well as the anatomy. The patient states that she understands and elects to proceed. PROCEDURE NOTE: The patient was taken to the procedure area. She was then assisted in sitting at the table. Her wrist was placed upon the bed. This area was sterilely prepped. Her left wrist area was sterilely prepped with a chlorhexidine solution and allowed to dry. A chloride solution was sprayed to numb and anesthetize the area. A 25-gauge needle [place] [address] PAIN MANAGEMENT CONSULTATION Name: JANKI ROD Room: [facility]#: [id number] Admission: 11/18/19 Attend Phys: Claire Yoder MD Discharge: Date of : 39 Report #: [id number] area of the left wrist area. After appropriate placement, a total of 40 mg triamcinolone with 3 mL of 0.5% bupivacaine was injected. The patient tolerated the procedure well. She remained in the Pain Clinic for an appropriate amount of time. She will resume use of her Warfarin. We would like to thank you for letting us participate in her care. We hope she continues to improve. <ELECTRONICALLY SIGNED> By: Claire Yoder MD 12/09/19 1540 [id number]. Perfecto Yoder MD /nt
== END | disposition home or self-care (01) ==
LOC: M.PC 09:00
PROVIDERS: ATTEND Anesthesiology Pain Medicine
DX: M65.4 Radial styloid tenosynovitis [de Quervain] (principal); G89.29 Other chronic pain; M25.532 Pain in left wrist; M79.18 Myalgia, other site; I82.409 Acute embolism and thrombosis of unspecified deep veins of unspecified lower extremity; Z98.890 Other specified postprocedural states; Z79.899 Other long term (current) drug therapy; Z79.01 Long term (current) use of anticoagulants; Z96.642 Presence of left artificial hip joint; Z88.8 Allergy status to other drugs, medicaments and biological substances

== ENCOUNTER → 2020-01-20 | Outpatient (CLI) | payer MEDICARE, OTHER ==
--- NOTE | 2020-02-01 15:37 | PAINCON ---
[address] [address] PAIN MANAGEMENT CONSULTATION Name: JANKI ROD Emerson Room: [facility]#: [id number] Admission: 01/20/20 Attend Phys: Claire Yoder MD Discharge: Date of : 39 Report #: [id number] THIS REPORT FOR: //name// cc: Leona Rocha Ahmad W. DO ~ THIS REPORT FOR: //name// CC: Leona Yoder DATE OF SERVICE: 01/20/2020 CHIEF COMPLAINT: Medication renewal. HISTORY: The patient is an 79-year-old female who has been followed in the Pain Clinic. She has a history of cervical pain. She also has some lumbar problems. She states that she has been aching all night long. She does have a history of lymphedema. She has some discomfort with her left wrist. She has not fallen, but does have pain and discomfort in the right leg. Over the past week, it has been more problematic. Prolonged standing has been more of a difficulty. She has her son and his living with her and that has been an added stressor. She has returned today for renewal of her medications. ALLERGIES: DEMEROL, HYDROCODONE, VICODIN, TYLENOL. CURRENT MEDICATIONS: Extra Strength Tylenol, amlodipine 5 mg, Flexeril 10 mg, Neurontin 300 mg in the morning and 600 mg in the evening, Lopressor 25 mg b.i.d., omeprazole 25 mg, Percocet 5/325 one p.o. t.i.d., Requip 0.5 mg 2 tablets at bedtime, trazodone 150 mg at bedtime, chlortab, vitamin B complex, Coumadin 5 mg daily, metformin 500 mg daily. PAIN CLINIC ASSESSMENT AND PQRS: 1. The patient has a history of spinal stenosis in the lower portion of her back. She has also history of cervical radicular pain that involves neck and has pain that radiates down into her left arm. 2. Height 5 feet 4 inches, weight 228 pounds, BMI is 37. 3. Vital signs: Blood pressure 128/67, heart rate 66, respiratory rate 15, room air saturation 95%, temperature 98.1. 4. Pain intensity: 6/10. 5. Fall history: The patient has not fallen in the last month, but notes that her balance is poor. 6. Hypertension: The patient is not being treated for hypertension. 7. Opioids: The patient uses opioid medications. 8. Functional assessment tool: Low for opioid use. 9. Recreational drug use: The patient denies. 10. Tobacco: [place] [address] PAIN MANAGEMENT CONSULTATION Name: MARCELJANKI Room: [facility]#: [id number] Admission: 01/20/20 Attend Phys: Claire Yoder MD Discharge: Date of : 39 Report #: [id number] 11. Alcohol: The patient denies. PHYSICAL EXAMINATION: GENERAL: The patient is a well-developed, well-nourished, white female. Appears her stated age. She is alert and oriented x 3. Her affect is appropriate. Speech is fluent. HEENT: Normocephalic, atraumatic. Extraocular eye muscles intact. Sclerae nonicteric. Mucous membranes are moist. The patient has a facial covering. NECK: Without adenopathy or JVD. The patient has some pain that radiates into her arm and forearm. Complains of some wrist pain and discomfort. HEART: Regular rate. ABDOMEN: Nontender. LUNGS: Clear. MUSCULOSKELETAL: Upper extremity muscle strength is judged to be 4-/5 on the left with some weakness. The patient also complains of some weakness in her right leg with numbness and tingling in her foot. She does have a prosthetic leg on the left. She states that she has to lean on counters and lean forward when she is in the kitchen. Describes a ____ her groin and foot, feels that this discomfort is increasing. Notes worsening of pain after walking a few steps, right foot begins to drag. She has been using a walker at home. She feels that her leg continues to give out. She has noted an additional back spasms and pain. IMPRESSION: 1. De Quervain's tenosynovitis. 2. History of cervical radiculopathy. 3. History of lumbar radicular pain in the low back area. 4. Myofascial pain. 5. History of osteoarthritis involving the shoulders, status post surgeries. 6. Polyarthritis with multiple back surgeries. 7. Left hip replacement with prosthetic leg. 8. History of right foot pain, status post multiple surgeries. 9. Gastroesophageal/gastrointestinal obstruction. 10. Chronic anticoagulation secondary to deep venous thrombosis and bilateral pulmonary edema. RECOMMENDATIONS: We discussed treatment options with the patient. At this juncture, we will continue with her medication. A script for her medications have been rewritten. She will continue with oxycodone 5 mg 1 p.o. t.i.d. A script for 2 months of medication has been written. The patient will call us if she has any new concerns. [address] [place] [address] PAIN MANAGEMENT CONSULTATION Name: JANKI ROD Room: [facility]#: [id number] Admission: 01/20/20 Attend Phys: Claire Yoder MD Discharge: Date of : 39 Report #: [id number] We would like to thank you for letting us participate in her care. We hope she continues to improve. <ELECTRONICALLY SIGNED> By: Claire Yoder MD 02/01/20 1537 [id number]. Perfecto Yoder MD /nt
== END ==
LOC: M.PC 11:00
PROVIDERS: ATTEND Anesthesiology Pain Medicine
DX: Z76.0 Encounter for issue of repeat prescription (principal); M65.4 Radial styloid tenosynovitis [de Quervain]; M79.10 Myalgia, unspecified site; K21.9 Gastro-esophageal reflux disease without esophagitis; J81.0 Acute pulmonary edema; R79.1 Abnormal coagulation profile; Z98.890 Other specified postprocedural states; Z96.642 Presence of left artificial hip joint; Z87.39 Personal history of other diseases of the musculoskeletal system and connective tissue; Z88.8 Allergy status to other drugs, medicaments and biological substances; Z79.899 Other long term (current) drug therapy

== ENCOUNTER → 2020-04-06 | Outpatient (CLI) | payer MEDICARE ==
[~2020-04-06] MED LIST changes: +ELIQUIS2.5 MG PO
--- NOTE | 2020-05-04 14:42 | PAINCON ---
[address] [address] PAIN MANAGEMENT CONSULTATION Name: JANKI ROD Room: [facility]#: [id number] Admission: 04/06/20 Attend Phys: Claire Yoder MD Discharge: Date of : 39 Report #: [id number] THIS REPORT FOR: //name// cc: Cris Hood MD, Pamela MD ~ CC: Claire Hood DATE OF SERVICE: 04/06/2020 CHIEF COMPLAINT: Left shoulder pain. HISTORY: The patient is an 79-year-old female who has been seen in the pain clinic for chronic pain. She returns today indicating that she is having pain in the left shoulder area. She feels that the pain is getting worse as time goes on. She had an evaluation of her shoulder with an MRI per her report. Nothing significant was found. She is going to see an orthopedic surgeon in the next few days. Notes some pain and discomfort in the area of her left ear. Has some pain in her right shoulder, which is hurting as well. Feels that there is occasionally some numbness around the left ear and facial area. Rates her pain today as 5/10. She feels that her medications are helpful. She has been treated with amoxicillin for a possibility of inner ear infection. She did not feel that that significantly changed things. ALLERGIES: DEMEROL, HYDROCODONE, VICODIN, TYLENOL. CURRENT MEDICATIONS: Extra Strength Tylenol, amlodipine 5 mg, Flexeril 10 mg, Neurontin 300 mg morning, 600 mg evening, Lopressor 25 mg b.i.d., omeprazole 25 mg, Percocet 5/325 one p.o. t.i.d., Requip 0.5 mg 2 tablets at bedtime, trazodone 150 mg at bedtime, Chlortab, vitamin B complex, Coumadin 5 mg daily, metformin 500 mg daily. PAIN CLINIC ASSESSMENT AND PQRS: 1. The patient has a history of spinal stenosis in the lower portion of her back. She also has a history of cervical radicular pain that involves her neck and has pain that radiates down to her left arm. 2. Height 5 feet 4 inches, weight 220 pounds, BMI is 40. 3. Vital Signs: Blood pressure 136/68, pulse 82, respiratory rate 16, room air saturation 96%, temperature 98.2. 4. Pain intensity 5/10. 5. Fall history: The patient has not fallen in the last 3 months. 6. The patient does have poor balance. 7. Hypertension. The patient is not being treated for hypertension. 8. Opioids. The patient uses opioid medications. 9. Functional assessment tool, low for opioid use. 10. Recreational drug use: [place] [address] PAIN MANAGEMENT CONSULTATION Name: JANKI ROD Emerson Room: [facility]#: [id number] Admission: 04/06/20 Attend Phys: Claire Yoder MD Discharge: Date of : 39 Report #: [id number] 11. Tobacco: The patient denies. 12. Alcohol. The patient denies use of alcoholic beverages. PHYSICAL EXAMINATION: GENERAL: The patient is a well-developed, well-nourished white female. Appears her stated age. She is alert and oriented x 3. Her affect is appropriate. Speech is fluent. HEENT: Normocephalic, atraumatic. Extraocular eye muscles intact. Sclerae nonicteric. Mucous membranes are moist. The patient is wearing a facial covering. Does complain of some pain in the left neck area. Has some pain in the area of the ear. The patient has pain that radiates down into her forearm and arm. Complains of wrist pain and discomfort. HEART: Regular rate. ABDOMEN: Nontender. LUNGS: Clear to auscultation. MUSCULOSKELETAL: Upper extremity muscle strength judged to be 4-/5 for the major muscle groups in the left with weakness. The patient also has complaints of pain in her right leg with numbness and tingling down into her foot. She does have a prosthetic left leg. States that there is worsening of the pain after walking a few steps. Notes that her whole right foot drags. She has been using a walker at home for stability. Does feel that her leg gives out after some exertion. Has continued to have back spasms. IMPRESSION: 1. De Quervain's tenosynovitis. 2. History of cervical radiculopathy. 3. History of lumbar radicular pain in the low back area. 4. Myofascial pain. 5. History of osteoarthritis involving the shoulders, status post surgeries. 6. Polyarthritis with multiple back surgeries. 7. Left hip replacement with prosthetic leg. 8. History of right foot pain, status post multiple surgeries. 9. Gastroesophageal/gastrointestinal obstruction. 10. Chronic anticoagulation secondary to deep venous thrombosis and bilateral pulmonary edema. RECOMMENDATIONS: We discussed treatment options with the patient. At this juncture, we will continue with her medications. A script for her medications have been rewritten. She will continue with oxycodone 5/325 one p.o. t.i.d. as needed. She will call us if she has any concerns. Hopefully, she will continue to improve. States that she is contemplating seeing an orthopedic surgeon in the near future. She will tell us what his concerns were regarding the possibility of surgery. We would like to thank you for letting us participate in her care. She is not having any problems with her medications and is able to [place] [address] PAIN MANAGEMENT CONSULTATION Name: MARCELJANKI Emerson Room: [facility]#: [id number] Admission: 04/06/20 Attend Phys: Claire Yoder MD Discharge: Date of : 39 Report #: [id number] not having any problems with the medications, which are causing problems with her balance per her report. We would like to thank you for letting us participate in her care. We hope she continues to improve. <ELECTRONICALLY SIGNED> By: Claire Yodre MD 05/04/20 1442 [id number]. Perfecto Yoder MD /nt
== END ==
LOC: M.PC 10:47
PROVIDERS: ATTEND Anesthesiology Pain Medicine
DX: M65.4 Radial styloid tenosynovitis [de Quervain] (principal); K21.9 Gastro-esophageal reflux disease without esophagitis; M19.90 Unspecified osteoarthritis, unspecified site; Z79.01 Long term (current) use of anticoagulants

== ENCOUNTER → 2020-04-13 | Outpatient (CLI) | payer MEDICARE ==
--- NOTE | 2020-05-04 14:42 | PAINCON ---
[address] [address] PAIN MANAGEMENT CONSULTATION Name: MARCELJANKI Norman Room: [facility]#: [id number] Admission: 04/13/20 Attend Phys: Claire Yoder MD Discharge: Date of : 39 Report #: [id number] THIS REPORT FOR: //name// cc: Cris Hood MD, Pamela MD ~ CC: Leona Lacy DATE OF SERVICE: 04/13/2020 CHIEF COMPLAINT: Neck and arm pain. HISTORY: The patient is an 80-year-old female who has been followed in the pain clinic because of pain. She has pain in the cervical area. She also has been experiencing pain in the lumbar area. She returns today with pain, which is most problematic in the neck and arms. She would like to proceed with an epidural steroid injection today. It involves her neck with pain that radiates down into the right side. Also, has some pain in the left side near her ear. She has been told that it might be temporomandibular joint problem. She has rated her pain as a 5/10. She feels that the Percocet medications are helping. Feels that gabapentin is helpful. Weather has changed. Walking and standing have been more problematic. She is having more and more difficulty ambulating. Has some problems with her balance. She has stopped taking the Eliquis with the intention of undergoing a cervical epidural steroid injection today. ALLERGIES: DEMEROL, HYDROCODONE, VICODIN, TYLENOL. CURRENT MEDICATIONS: Extra Strength Tylenol, amlodipine 5 mg, Flexeril 10 mg, Neurontin 300 mg morning and 600 mg evening, Lopressor 25 mg b.i.d., omeprazole 25 mg, Percocet 5/325 one p.o. t.i.d., Requip 2 mg tablets at bedtime, trazodone 150 mg at bedtime, ChlorTab, vitamin B complex, Coumadin 5 mg, and metformin 500 mg daily. PAIN CLINIC ASSESSMENT AND PQRS: 1. The patient has a history of spinal stenosis in the lower portion of her back. She also has a cervical radicular component involving her neck with pain that is radiating down to her left arm at this juncture. 2. Height 5 feet 4 inches, weight 222 pounds, BMI is 40. 3. Vital signs: Blood pressure 147/66, pulse is 99, respiratory rate 16, room air saturation is 97%, temperature 97.7. 4. Pain intensity 5/10. 5. Fall history: The patient has not fallen since we saw her last. 6. Blood thinner. The patient is not on a blood thinning medication. She has stopped it with a desire to undergo a cervical epidural injection. 7. Fall. The patient has not fallen, but does state [place] [address] PAIN MANAGEMENT CONSULTATION Name: MARCELJANKI Emerson Room: [facility]#: [id number] Admission: 04/13/20 Attend Phys: Claire Yoder MD Discharge: Date of : 39 Report #: [id number]. 8. Hypertension. The patient is not being treated for hypertension. 9. Opioids greater than 6 weeks. The patient received medication from [facility]. 10. Functional assessment tool reviewed. 11. Recreational drug use: The patient denies. 12. Tobacco: The patient denies. 13. Alcohol. The patient denies frequent use of alcoholic beverages. PHYSICAL EXAMINATION: GENERAL: The patient is a well-developed, well-nourished white female. Appears her stated age. She is alert and oriented x 3. Her affect is appropriate. Speech is fluent. HEENT: Normocephalic, atraumatic. Extraocular eye muscles intact. Sclerae nonicteric. The patient is wearing facial covering. NECK: Without adenopathy. The patient does complain of some pain and discomfort in her arms and radiating down to her forearm. Has pain on the left side of the neck and down into her arm. Has some pain in the lateral portion of her face, which might be temporomandibular joint generated. ABDOMEN: Nontender. LUNGS: Clear. HEART: Regular rate. MUSCULOSKELETAL: Upper extremity muscle strength judged to be 4-/5 for the major muscle groups on the left foot weakness. The patient has some weakness in the right leg with numbness and tingling down into her foot. Has a prosthetic leg on the left. States that she has more difficulty ambulating at this juncture. She feels weakness in her right foot. Feels that her leg, sometimes gives out. IMPRESSION: 1. De Quervain's tenosynovitis. 2. History of cervical radiculopathy. 3. History of lumbar radicular pain in the lower back area. 4. Myofascial pain. 5. History of osteoarthritis involving shoulders, status post surgeries. 6. Polyarthritis with multiple back surgeries. 7. 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 8. History of right foot pain, status post multiple surgeries. 9. Gastrointestinal obstruction. 10. Chronic anticoagulation secondary to deep venous thrombosis and bilateral pulmonary edema. RECOMMENDATIONS: We discussed treatment options with the patient. At this juncture, she will undergo a cervical epidural steroid injection. Risks and benefits of the procedure were discussed. Possible complications were reviewed. They include but are not limited to infection, worsening pain, [place] [address] PAIN MANAGEMENT CONSULTATION Name: JANKI ROD Room: [facility]#: [id number] Admission: 04/13/20 Attend Phys: Claire Yoder MD Discharge: Date of : 39 Report #: [id number] in pain, nerve damage, bleeding, and the patient elects to proceed. PROCEDURE NOTE: The patient was taken to the procedure area. She was then assisted in getting on the examination table. Her back was sterilely prepped with a Betadine solution. A 0.25% bupivacaine was infiltrated in the cervical area. Fluoroscopy using anterior and posterior as well as lateral viewing were used to corroborate the appropriate placement. A 17-gauge Tuohy with loss of resistance technique was used to gain access to the epidural space. The patient remained in the pain clinic for an appropriate amount of time. A total of 120 mg triamcinolone was injected. She will call us if she has any concerns. We would like to thank you for letting us participate in her care. We hope she continues to improve. <ELECTRONICALLY SIGNED> By: Claire Yoder MD 05/04/20 1442 [id number]. Perfecto Yoder MD /ANAYA
== END | disposition home or self-care (01) ==
LOC: M.PC 09:19
PROVIDERS: ATTEND Anesthesiology Pain Medicine
DX: M54.2 Cervicalgia (principal); G89.29 Other chronic pain; M13.0 Polyarthritis, unspecified; Z96.642 Presence of left artificial hip joint; Z98.890 Other specified postprocedural states; Z79.899 Other long term (current) drug therapy; Z79.01 Long term (current) use of anticoagulants; Z88.8 Allergy status to other drugs, medicaments and biological substances

== ENCOUNTER → 2020-07-20 | Outpatient (CLI) | payer OTHER ==
[~2020-07-20] MED LIST changes: -ELIQUIS2.5 MG PO; +ELIQUIS5 MG PO
== END ==
LOC: M.PC 09:00
PROVIDERS: ATTEND Anesthesiology Pain Medicine
DX: M54.5 Low back pain (principal); M54.2 Cervicalgia; Z96.642 Presence of left artificial hip joint; Z79.899 Other long term (current) drug therapy; Z88.5 Allergy status to narcotic agent; Z88.8 Allergy status to other drugs, medicaments and biological substances

== ENCOUNTER → 2020-10-12 | Outpatient (CLI) | payer OTHER ==
[~2020-10-12] MED LIST changes: +CHLORTABS4 MG PO; +ELIQUIS2.5 MG PO; -ELIQUIS5 MG PO; +HAIR, SKIN & N1 EAC2 PO; +OCUVITE TABLET1 EAC1 PO; +VITAMIN C100 MG PO; +VITAMIN D3 COM1 EACH PO
== END ==
LOC: M.PC 09:51
PROVIDERS: ATTEND Anesthesiology Pain Medicine
DX: M54.12 Radiculopathy, cervical region (principal); M54.16 Radiculopathy, lumbar region; K21.9 Gastro-esophageal reflux disease without esophagitis; M13.0 Polyarthritis, unspecified; M65.4 Radial styloid tenosynovitis [de Quervain]; M54.5 Low back pain; M54.2 Cervicalgia; M79.18 Myalgia, other site; Z96.641 Presence of right artificial hip joint; Z79.84 Long term (current) use of oral hypoglycemic drugs; Z79.899 Other long term (current) drug therapy; Z88.8 Allergy status to other drugs, medicaments and biological substances

== ENCOUNTER → 2020-12-12 | Outpatient (CLI) | payer OTHER | LOC: M.PC 08:40 | PROVIDERS: ATTEND Anesthesiology Pain Medicine | DX: M54.12 Radiculopathy, cervical region (principal); M54.16 Radiculopathy, lumbar region; M13.0 Polyarthritis, unspecified; K21.9 Gastro-esophageal reflux disease without esophagitis; Z96.642 Presence of left artificial hip joint; Z79.01 Long term (current) use of anticoagulants; Z79.899 Other long term (current) drug therapy ==

== ENCOUNTER → 2020-12-21 | Outpatient (CLI) | payer OTHER | END | disposition home or self-care (01) | LOC: M.PC 08:52 | PROVIDERS: ATTEND Anesthesiology Pain Medicine | DX: M54.12 Radiculopathy, cervical region (principal); G89.29 Other chronic pain; M54.16 Radiculopathy, lumbar region; I10 Essential (primary) hypertension; I25.2 Old myocardial infarction; M19.90 Unspecified osteoarthritis, unspecified site; I25.10 Atherosclerotic heart disease of native coronary artery without angina pectoris; Z98.890 Other specified postprocedural states; Z79.899 Other long term (current) drug therapy; Z96.642 Presence of left artificial hip joint; Z96.651 Presence of right artificial knee joint; Z86.718 Personal history of other venous thrombosis and embolism; Z79.01 Long term (current) use of anticoagulants; Z90.49 Acquired absence of other specified parts of digestive tract ==

== ENCOUNTER → 2021-02-20 | Outpatient (CLI) | payer OTHER | LOC: M.PC 08:49 | PROVIDERS: ATTEND Anesthesiology Pain Medicine | DX: M54.12 Radiculopathy, cervical region (principal); M54.16 Radiculopathy, lumbar region; M65.4 Radial styloid tenosynovitis [de Quervain]; M19.011 Primary osteoarthritis, right shoulder; M19.012 Primary osteoarthritis, left shoulder; I82.599 Chronic embolism and thrombosis of other specified deep vein of unspecified lower extremity; I27.82 Chronic pulmonary embolism; M79.18 Myalgia, other site; Z79.899 Other long term (current) drug therapy; Z88.8 Allergy status to other drugs, medicaments and biological substances ==

== ENCOUNTER → 2021-05-08 | Outpatient (CLI) | payer OTHER | LOC: M.PC 11:22 | PROVIDERS: ATTEND Anesthesiology Pain Medicine | DX: H34.9 Unspecified retinal vascular occlusion (principal); M54.12 Radiculopathy, cervical region; M54.16 Radiculopathy, lumbar region; M65.4 Radial styloid tenosynovitis [de Quervain]; M19.011 Primary osteoarthritis, right shoulder; M79.18 Myalgia, other site; Z98.890 Other specified postprocedural states; Z79.899 Other long term (current) drug therapy ==

== ENCOUNTER → 2021-07-17 | Outpatient (CLI) | payer OTHER | LOC: M.PC 10:53 | PROVIDERS: ATTEND Anesthesiology Pain Medicine | DX: M54.12 Radiculopathy, cervical region (principal); M54.16 Radiculopathy, lumbar region; M79.642 Pain in left hand; M79.641 Pain in right hand; M79.18 Myalgia, other site; M19.011 Primary osteoarthritis, right shoulder; M19.012 Primary osteoarthritis, left shoulder; Z96.642 Presence of left artificial hip joint; Z88.8 Allergy status to other drugs, medicaments and biological substances; Z79.84 Long term (current) use of oral hypoglycemic drugs; Z79.899 Other long term (current) drug therapy ==